=== PATIENT | male | born 1980 | race Caucasian/White ===

== ENCOUNTER 2020-08-21 05:04 | Inpatient (IN) | payer MEDICARE ==
[~2020-08-21] VITALS: Ht 180.3 cm; Wt 64.9 kg
[~2020-08-21 05:04] MED LIST: BENTYL 20 MG TA20 MG PO; CARAFATE1 G PO; METOPROLOL TART25 MG PO; NITROQUICK0.4 MG SL; OMEPRAZOLE20 M1 PO
[2020-08-21 05:58] LABS: BASOPHILS 0.5 % (0-2); EOSINOPHILS 2.6 % (0-7); HEMATOCRIT 38.3 % (42.0-54.0); HEMOGLOBIN 13.6 g/dL (13.5-17.5); IMMATURE GRANULOCYTES 0.2 % (0-5); LYMPHOCYTE ABS# 1.42 10x3/uL (1.32-3.57); LYMPHOCYTES 23.2 % (15-50); MCHC 35.5 g/dL (31.0-37.0); MCV 84.4 fL (80.0-100.0); MEAN PLATELET VOLUME 9.6 fL (7.4-10.4); MONOCYTES 12.2 % (2-11); NEUTROPHIL ABS# 3.76 10x3/uL (1.78-5.38); NEUTROPHILS 61.3 % (40-80); PLATELET COUNT 298 10x3/uL (130-400); RBC 4.54 10x6/uL (4.20-6.10); RDW 13.1 % (11.5-14.5); WBC 6.1 10x3/uL (4.8-10.8)
[2020-08-21 06:12] LABS: CALC OSMOLALITY 283 mosm/kg (275-300); CALCIUM 9.2 mg/dL (8.5-10.1); CARBON DIOXIDE 27.8 mmol/L (21.0-32.0); CHLORIDE - SERUM 106 mmol/L (98-107); CREATININE - SERUM 0.9 mg/dL (0.6-1.3); GLUCOSE 96 mg/dL (74-106); POTASSIUM - SERUM 3.8 mmol/L (3.5-5.1); SODIUM 143 mmol/L (136-145); UREA NITROGEN 9 mg/dL (7-18); eGFR NON AFRICAN AMERICAN > 90 mL/min (90-120)
[2020-08-21 06:18] LABS: ALBUMIN 4.3 g/dL (3.4-5.0); ALKALINE PHOSPHATASE 77 U/L (30-120); ALT (SGPT) 158 U/L (10-68); AMYLASE - SERUM 235 U/L (25-115); BILIRUBIN - TOTAL 0.82 mg/dL (0.2-1.3); LIPASE 1202 U/L (73-393)
[2020-08-21 06:26] LABS: TROPONIN-I < 0.017 ng/mL (0.000-0.060)
[2020-08-21 06:45] VITALS: BP 140/88
[2020-08-21 07:15] LABS: BILIRUBIN NEGATIVE (NEGATIVE); KETONE NEGATIVE (NEGATIVE); NITRITE NEGATIVE (NEGATIVE); UROBILINOGEN NORMAL mg/dL (< 2)
--- NOTE | 2020-08-21 09:05 | NUR ---
ARRIVES TO UNIT PER W/C FROM ER
[2020-08-21] MEDS ORDERED: ZOLOFT50 MG PO ×2 (09:52→09:54)
[2020-08-21] MEDS ORDERED: ATIVAN0.5 MG PO (09:53)
[2020-08-21] MEDS ORDERED: LUNESTA2 M1 PO (09:55)
[2020-08-21] MEDS ORDERED: LIPITOR40 MG PO (09:56)
--- NOTE | 2020-08-21 10:25 | NUR ---
RESTING IN BED, NO DISTRESS NOTED, WANTING TO DRINK, PROVIDED SWABS AND URINAL FOR USD
[2020-08-21 11:59] LABS: UDS - AMPHET NEGATIVE QUAL (NEGATIVE); UDS - BARB NEGATIVE QUAL (NEGATIVE); UDS - BENZO NEGATIVE QUAL (NEGATIVE); UDS - COCAINE NEGATIVE QUAL (NEGATIVE); UDS - OPIATE NEGATIVE QUAL (NEGATIVE); UDS - PCP NEGATIVE QUAL (NEGATIVE); UDS - THC NEGATIVE QUAL (NEGATIVE)
[2020-08-21 12:11] LABS: CHOL - HDL RATIO 3.1 ratio (2.3-4.9); LDL-HDL RATIO 1.5 ratio (1.5-3.5)
[2020-08-21 12:56] VITALS: BP 133/82
[2020-08-21 13:26] VITALS: BP 1244/75
[2020-08-21 13:57] VITALS: BMI 19.9
[2020-08-21 18:16] VITALS: BP 130/80
[2020-08-21 19:16] VITALS: Ht 180.3 cm; Wt 64.9 kg
[2020-08-21 20:52] VITALS: BP 141/75
[2020-08-22 01:04] VITALS: BP 104/69
[2020-08-22 05:25] VITALS: BP 104/68
[2020-08-22 06:43] LABS: BASOPHILS 0.1 % (0-2); EOSINOPHILS 0.8 % (0-7); HEMATOCRIT 35.1 % (42.0-54.0); HEMOGLOBIN 12.6 g/dL (13.5-17.5); IMMATURE GRANULOCYTES 0.2 % (0-5); LYMPHOCYTE ABS# 1.72 10x3/uL (1.32-3.57); LYMPHOCYTES 17.8 % (15-50); MCH 30.1 pg (26.0-34.0); MCHC 35.9 g/dL (31.0-37.0); MEAN PLATELET VOLUME 9.9 fL (7.4-10.4); MONOCYTES 9.8 % (2-11); NEUTROPHIL ABS# 6.89 10x3/uL (1.78-5.38); NEUTROPHILS 71.3 % (40-80); PLATELET COUNT 321 10x3/uL (130-400); RBC 4.18 10x6/uL (4.20-6.10); RDW 12.8 % (11.5-14.5)
[2020-08-22 06:44] LABS: WBC 9.7 10x3/uL (4.8-10.8)
[2020-08-22 07:16] LABS: ALBUMIN 3.6 g/dL (3.4-5.0); ALKALINE PHOSPHATASE 65 U/L (30-120); BILIRUBIN - TOTAL 0.81 mg/dL (0.2-1.3); CALCIUM 8.9 mg/dL (8.5-10.1); CARBON DIOXIDE 26.6 mmol/L (21.0-32.0); CHLORIDE - SERUM 103 mmol/L (98-107); CREATININE - SERUM 0.8 mg/dL (0.6-1.3); GLUCOSE 71 mg/dL (74-106); POTASSIUM - SERUM 3.7 mmol/L (3.5-5.1); PROTEIN - SERUM 6.3 g/dL (6.4-8.2); SODIUM 139 mmol/L (136-145); eGFR NON AFRICAN AMERICAN > 90 mL/min (90-120)
[2020-08-22 07:18] LABS: ALT (SGPT) 102 U/L (10-68); AMYLASE - SERUM 66 U/L (25-115); CALC OSMOLALITY 275 mosm/kg (275-300); LIPASE 424 U/L (73-393); UREA NITROGEN 13 mg/dL (7-18)
--- NOTE | 2020-08-22 08:10 | NUR ---
AAOX4 UPON ENTERING. ADMINISTERED MORNING MEDICATION, EXCEPT PO DUE TO NPO ORDERS. TOLERATED WELL. RESTING IN BED, DENIES ANY NEEDS AT THIS TIME. BED IN LOWEST POSITION, BED RAILS X2, CALL LIGHT WITHIN REACH. WILL CONTINUE POC.
--- NOTE | 2020-08-22 08:20 | NUR ---
AAOX4 UPON ENTERING. ADMINISTERED MORNING MEDICATION AND HUNG NEW BAG OF NS. DENIES ANY NEEDS AT THIS TIME. BED IN LOWEST POSITION, BED RAILS X2, CALL LIGHT WITHIN REACH. WILL CONTINUE POC.
--- NOTE | 2020-08-22 11:01 | NUR ---
PRN ATIVAN FOR ANXIETY. RESTING IN BED. DENIES FURTHER NEEDS AT THIS TIME. WILL CONTINUE POC.
[2020-08-22 11:28] VITALS: BP 131/70
[2020-08-22 16:00] VITALS: BP 152/82
--- NOTE | 2020-08-22 16:16 | NUR ---
NEW BAG OF IV FLUIDS HUNG, ADMINISTERED ZOLOFT AT THIS TIME PER PATIENT REQUEST SINCE IT WASN'T GIVEN THIS MORNING. DENIES FURTHER NEEDS. WILL CONTINUE POC.
--- NOTE | 2020-08-22 17:20 | NUR ---
I have reviewed this patient and I concur with the Shift Assessment completed by the Licensed Practical Nurse today this shift.
--- NOTE | 2020-08-22 18:40 | NUR ---
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 SITTING UPRIGHT IN BED. DENIES ANY NEEDS. BED IN LOWEST POSITION, BED RAILS X2, CALL LIGHT WITHIN REACH. WILL CONTINUE POC.
[2020-08-22 18:48] VITALS: BP 122/79
--- NOTE | 2020-08-22 19:00 | NUR ---
BEDSIDE REPORT RECEIVED AND CARE OF PT ASSUMED. PT LYING IN LOW MOURA'S POSITION WATCHING TV. IV TO RIGHT WRIST PATENT WITH NS INFUSING AT 125 ML/HR, AND ZOFRAN INFUSING AT 4.7 ML/HR. 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
--- NOTE | 2020-08-22 21:24 | NUR ---
GAVE ATIVAN PO PER PRN ORDER PER REQUEST. WILL CONTINUE TO MONITOR FOR NEEDS.
--- NOTE | 2020-08-22 22:04 | NUR ---
HS MEDICAITONS GIVEN. WILL CONTINUE TO MONITOR FOR NEEDS.
[2020-08-23 06:31] LABS: BASOPHILS 0.3 % (0-2); EOSINOPHILS 1.3 % (0-7); HEMATOCRIT 37.6 % (42.0-54.0); HEMOGLOBIN 13.2 g/dL (13.5-17.5); IMMATURE GRANULOCYTES 0.3 % (0-5); LYMPHOCYTE ABS# 2.42 10x3/uL (1.32-3.57); LYMPHOCYTES 30.7 % (15-50); MCHC 35.1 g/dL (31.0-37.0); MCV 85.5 fL (80.0-100.0); MEAN PLATELET VOLUME 9.6 fL (7.4-10.4); MONOCYTES 8.8 % (2-11); NEUTROPHIL ABS# 4.63 10x3/uL (1.78-5.38); NEUTROPHILS 58.6 % (40-80); PLATELET COUNT 337 10x3/uL (130-400); RDW 13.3 % (11.5-14.5); WBC 7.9 10x3/uL (4.8-10.8)
[2020-08-23 06:53] LABS: ALBUMIN 3.9 g/dL (3.4-5.0); ALKALINE PHOSPHATASE 65 U/L (30-120); ALT (SGPT) 78 U/L (10-68); BILIRUBIN - TOTAL 0.58 mg/dL (0.2-1.3); CALCIUM 9.1 mg/dL (8.5-10.1); CARBON DIOXIDE 29.7 mmol/L (21.0-32.0); CHLORIDE - SERUM 104 mmol/L (98-107); CREATININE - SERUM 0.9 mg/dL (0.6-1.3); GLUCOSE 79 mg/dL (74-106); POTASSIUM - SERUM 3.6 mmol/L (3.5-5.1); PROTEIN - SERUM 6.7 g/dL (6.4-8.2); SODIUM 142 mmol/L (136-145); eGFR NON AFRICAN AMERICAN > 90 mL/min (90-120)
[2020-08-23 06:55] LABS: CALC OSMOLALITY 279 mosm/kg (275-300); UREA NITROGEN 8 mg/dL (7-18)
[2020-08-23 09:33] VITALS: BP 132/82
[2020-08-23 11:37] LABS: AMYLASE - SERUM 82 U/L (25-115)
[2020-08-23 11:39] LABS: LIPASE 302 U/L (73-393)
--- NOTE | 2020-08-23 13:26 | NUR ---
0700 AWAKE ALERT SITTING UP IN BED ASNWERING ALL QUESTIONS REFUSES SCD PULLING 2000ML ON IS
[2020-08-23 13:56] VITALS: BP 133/71
--- NOTE | 2020-08-23 13:58 | MORECARE ---
CASE MANAGEMENT DISCHARGE SUMMARY PATIENT: AUGIE NEGRO UNIT: [id number] ADM DATE: 08/21/20 AGE: 40 : 82 SEX: M ROOM/BED: D.2223 AUTHOR: INA,DOC PHYSICIAN: REFERRING PHYSICIAN: KIKE TIDWELL MD DATE OF SERVICE: 08/23/20 Case Management Discharge Planning Summary DCP REVIEW SUMMARY ANTICIPATED D/C DATE: EXPECTED LOS : CASE STATUS: DCP Initiated INITIAL REVIEW: 08/21/2020 INITIAL REVIEWER: Anny Donnelly FINAL DISCHARGE DISPOSITION: : FINAL REVIEWER: FINAL REVIEW DATE: DCP Focus Questions & Answers DCP Screen QUESTION: ANSWER High Risk Factors: : 3 or more ED visits within the last 60 days DCP Evaluation QUESTION: ANSWER Patient's ability to cope with chronic illness : d. No chronic illness Would patient like to participate in any Care Coordination programs (if applicable): : Not applicable Mental health screen: : No mental health history DCP Re-evaluation QUESTION: ANSWER Would patient like to participate in any Care Coordination programs (if applicable): : Not applicable PATIENT: AUGIE NEGRO ENCOUNTER: [id number] MEDICAL RECORD#: [id number] ADMISSION DATE: 08/21/2020 DISCHARGE DATE: ATTENDING MD: KIKE MARQUEZ : AGE: 40 MARITAL STATUS: S DC PLAN ID: [id number] FACILITY: [facility] PRINTED ON: 08/23/20 13:58 CT All edits/amendments must be made on the electronic document DICTATION DATE: 08/23/20 1358 PRECISION FILER HAND: DICK 08/23/20 1358 RPT#: [id number] DC DATE: STATUS: ADM IN [facility] [address] [place] [address] END OF REPORT
--- NOTE | 2020-08-23 14:11 | MORECARE ---
CASE MANAGEMENT DISCHARGE SUMMARY PATIENT: AUGIE NEGRO UNIT: [id number] ADM DATE: 08/21/20 AGE: 40 : 82 SEX: M ROOM/BED: D.2223 AUTHOR: INA,DOC PHYSICIAN: REFERRING PHYSICIAN: KIKE TIDWELL MD DATE OF SERVICE: 08/23/20 Case Management Discharge Planning Summary COMMENTS ENTERED DATE: 08/23/20 14:01 CT COMMENT TYPE: Discharge Planning REVIEWER: Anny Donnelly CM met with patient to complete initial dc planning assessment. CM educated patient on the CM role and verbal consent given by patient to complete assessment. Patient lives at home with his and their child & states he is independent with his care. At discharge patient plans to return home and feels this is a safe discharge. CM discussed availability of home health, rehab services, and medical equipment. He said that he will take a taxi to get home and he has the money to pay for it. He uses [facility] pharmacy and his PCP is Dotty Carroll. IMM served and ELIDA signed to continue Care IV . Patient denied known discharge needs at this time. CM will continue to follow and will assist as needed with dc plans/needs. DCP REVIEW SUMMARY ANTICIPATED D/C DATE: EXPECTED LOS : CASE STATUS: DCP Initiated INITIAL REVIEW: 08/21/2020 INITIAL REVIEWER: Anny Donnelly FINAL DISCHARGE DISPOSITION: : FINAL REVIEWER: FINAL REVIEW DATE: DCP Focus Questions & Answers DCP Screen QUESTION: ANSWER High Risk Factors: : 3 or more ED visits within the last 60 days DCP Evaluation QUESTION: ANSWER Patient and/or caregiver agree upon recommended discharge plan? : Yes Patient's current cognitive status: : *Oriented to person, place, situation, time and present Patient's ability to cope with chronic illness : a. Adequate (0-3 ED visits in 6 mos., adequate financial resources, attends scheduled appts.) Family / Caregiver's ability to cope with chronic illness: : a. Adequate (ability to meet patient's medical needs, ensures patient attends medical appts.) Does the patient have the ability to pay for or attain post discharge needs / services? : Yes Functional screen assessment: : No issues identified Physical Status: : Independent with ADL's Equipment needed for post hospitalization: : None Is there a likelihood that the patient will require additional services to return to the preadmission environment? : Yes Living Arrangements: : Home with Spouse/Significant Other Results of this evaluation have been discussed with: : Patient Patient with capacity for self-care or can be cared for in same environment as prior to hospitalization? : Yes Baseline cognitive status: : *Oriented to person, place, situation, time and present Living arrangements comments: : lives with , and child Physical environment modification needed / anticipated for discharge: : No Medication Management: : Patient states can afford medications Planned post hospital services available for patient? : No Pharmacy name(s): : [facility] PCP: rolando Carroll Planned post hospital services covered by insurance plan? : N/A Does Patient have transportation to get home and to follow-up medical appointments when discharged from the hospital? : Yes Comments: : he will take a taxi & has money to pay for it Would patient like to participate in any Care Coordination programs (if applicable): : Not applicable Does the patient have electricity at home? : Yes Does the patient have running water in their house? : Yes Equipment in use: : None Mental health screen: : No mental health history Psychosocial status: : Independent adult (18-64) Abuse/Neglect: : None Resources / Services in place: : Home health Contact information for resources in use: : current with care iv home health DCP Re-evaluation QUESTION: ANSWER Would patient like to participate in any Care Coordination programs (if applicable): : Not applicable PATIENT: AUGIE NEGRO ENCOUNTER: [id number] MEDICAL RECORD#: [id number] ADMISSION DATE: 08/21/2020 DISCHARGE DATE: ATTENDING MD: KIKE MARQUEZ : AGE: 40 MARITAL STATUS: S DC PLAN ID: [id number] FACILITY: [facility] PRINTED ON: 08/23/20 14:11 CT All edits/amendments must be made on the electronic document DICTATION DATE: 08/23/201410 3RD GRADE READING TEACHER: DICK 08/23/201410 RPT#: [id number] DC DATE: STATUS: ADM IN [facility] [address] [place] [address] END OF REPORT
[2020-08-23 17:05] VITALS: BP 140/82
--- NOTE | 2020-08-23 19:00 | NUR ---
BEDSIDE REPORT RECEIVED AND CARE OF PT ASSUMED. PT LYING IN HIGH MOURA'S POSITION WATCHING TV. IV TO RIGHT WRIST PATENT WIT HNS INFUSING AT 50 ML/HR. SMALL HEALING INCISION ON LEFT CHEST WHERE PT JUST HAD PACEMAKER PLACED. STILL C/O PAIN IN ABDOMEN, BUT IMPROVING. WILL MONITOR FOR NEEDS.
--- NOTE | 2020-08-23 19:41 | NUR ---
GAVE ATIVAN AND DILAUDID PO PER PRN ORDER, PER REQUEST FOR ANXIETY AND ACHING ABDOMINAL PAIN RATED AT 8/10. WILL MONITOR FOR EFFECTIVENESS.
[2020-08-23 20:21] VITALS: BP 141/94
--- NOTE | 2020-08-23 20:45 | NUR ---
GAVE WARM WIPES PER PT REQUEST TO PERFORM BEDBATH ON HIMSELF.
[2020-08-24 04:30] VITALS: BP 107/70
--- NOTE | 2020-08-24 08:01 | NUR ---
0700 BEDSIDE REPORT RECEIVED PT IN BED JUST WAKING UP ENCOURAGED IS USE PULLING 3000 ML
[2020-08-24 08:27] LABS: BASOPHILS 0.2 % (0-2); EOSINOPHILS 2.1 % (0-7); IMMATURE GRANULOCYTES 0.4 % (0-5); LYMPHOCYTE ABS# 1.62 10x3/uL (1.32-3.57); LYMPHOCYTES 28.4 % (15-50); MCH 29.9 pg (26.0-34.0); MCHC 35.9 g/dL (31.0-37.0); MEAN PLATELET VOLUME 9.8 fL (7.4-10.4); MONOCYTES 11.6 % (2-11); NEUTROPHIL ABS# 3.28 10x3/uL (1.78-5.38); NEUTROPHILS 57.3 % (40-80); PLATELET COUNT 332 10x3/uL (130-400); RBC 4.68 10x6/uL (4.20-6.10)
[2020-08-24 08:28] LABS: MCV 83.3 fL (80.0-100.0); WBC 5.7 10x3/uL (4.8-10.8)
[2020-08-24 08:38] VITALS: BP 125/82
[2020-08-24 09:11] LABS: ALBUMIN 3.9 g/dL (3.4-5.0); ALKALINE PHOSPHATASE 65 U/L (30-120); ALT (SGPT) 67 U/L (10-68); AMYLASE - SERUM 34 U/L (25-115); BILIRUBIN - TOTAL 0.87 mg/dL (0.2-1.3); CALC OSMOLALITY 280 mosm/kg (275-300); CALCIUM 9.5 mg/dL (8.5-10.1); CARBON DIOXIDE 31.1 mmol/L (21.0-32.0); CHLORIDE - SERUM 102 mmol/L (98-107); CREATININE - SERUM 0.8 mg/dL (0.6-1.3); GLUCOSE 67 mg/dL (74-106); LIPASE 75 U/L (73-393); POTASSIUM - SERUM 3.4 mmol/L (3.5-5.1); PROTEIN - SERUM 6.4 g/dL (6.4-8.2); SODIUM 143 mmol/L (136-145); UREA NITROGEN 7 mg/dL (7-18); eGFR NON AFRICAN AMERICAN > 90 mL/min (90-120)
[2020-08-24 11:11] LABS: HEPATITIS C ANTIBODY <0.1 S/CO RAT (0.0-0.9)
[2020-08-24 12:30] VITALS: BP 113/72
[2020-08-24] MEDS ORDERED: HYDROCODON-ACE1 EA10 PO (13:06)
--- NOTE | 2020-08-24 14:06 | MORECARE ---
CASE MANAGEMENT DISCHARGE SUMMARY PATIENT: AUGIE NEGRO UNIT: [id number] ADM DATE: 08/21/20 AGE: 40 : 82 SEX: M ROOM/BED: D.2223 AUTHOR: INADOC PHYSICIAN: REFERRING PHYSICIAN: KIKE TIDWELL MD DATE OF SERVICE: 08/24/20 Case Management Discharge Planning Summary COMMENTS ENTERED DATE: 08/24/20 14:04 CT COMMENT TYPE: Discharge Planning REVIEWER: Anny Donnelly PATIENT BEING DISCHARGED HOME TODAY, WILL RESUME HOME HEALTH WITH CARE IV ENTERED DATE: 08/23/20 14:01 CT COMMENT TYPE: Discharge Planning REVIEWER: Anny Donnelly CM met with patient to complete initial dc planning assessment. CM educated patient on the CM role and verbal consent given by patient to complete assessment. Patient lives at home with his and their child & states he is independent with his care. At discharge patient plans to return home and feels this is a safe discharge. CM discussed availability of home health, rehab services, and medical equipment. He said that he will take a taxi to get home and he has the money to pay for it. He uses [facility] and his PCP is Dotty Carroll. IMM served and ELIDA signed to continue Care IV HH. Patient denied known discharge needs at this time. CM will continue to follow and will assist as needed with dc plans/needs. DCP REVIEW SUMMARY ANTICIPATED D/C DATE: EXPECTED LOS : CASE STATUS: DCP Initiated INITIAL REVIEW: 08/21/2020 INITIAL REVIEWER: Anny Donnelly FINAL DISCHARGE DISPOSITION: : FINAL REVIEWER: FINAL REVIEW DATE: DCP Focus Questions & Answers DCP Screen QUESTION: ANSWER High Risk Factors: : 3 or more ED visits within the last 60 days DCP Evaluation QUESTION: ANSWER Family / Caregiver's ability to cope with chronic illness: : a. Adequate (ability to meet patient's medical needs, ensures patient attends medical appts.) Patient's ability to cope with chronic illness : a. Adequate (0-3 ED visits in 6 mos., adequate financial resources, attends scheduled appts.) Patient's current cognitive status: : *Oriented to person, place, situation, time and present Patient and/or caregiver agree upon recommended discharge plan? : Yes Physical Status: : Independent with ADL's Functional screen assessment: : No issues identified Does the patient have the ability to pay for or attain post discharge needs / services? : Yes Living Arrangements: : Home with Spouse/Significant Other Is there a likelihood that the patient will require additional services to return to the preadmission environment? : Yes Equipment needed for post hospitalization: : None Living arrangements comments: : lives with , and child Baseline cognitive status: : *Oriented to person, place, situation, time and present Patient with capacity for self-care or can be cared for in same environment as prior to hospitalization? : Yes Results of this evaluation have been discussed with: : Patient Physical environment modification needed / anticipated for discharge: : No Medication Management: : Patient states can afford medications Pharmacy name(s): : [facility] PCP: rolando Carroll Planned post hospital services available for patient? : No Does Patient have transportation to get home and to follow-up medical appointments when discharged from the hospital? : Yes Planned post hospital services covered by insurance plan? : N/A Would patient like to participate in any Care Coordination programs (if applicable): : Not applicable Comments: : he will take a taxi & has money to pay for it Does the patient have electricity at home? : Yes Does the patient have running water in their house? : Yes Equipment in use: : None Mental health screen: : No mental health history Psychosocial status: : Independent adult (18-64) Abuse/Neglect: : None Resources / Services in place: : Home health Contact information for resources in use: : current with care iv home health DCP Re-evaluation QUESTION: ANSWER Would patient like to participate in any Care Coordination programs (if applicable): : Not applicable PATIENT: AUGIE NEGRO ENCOUNTER: [id number] MEDICAL RECORD#: [id number] ADMISSION DATE: 08/21/2020 DISCHARGE DATE: ATTENDING MD: KIKE MARQUEZ : AGE: 40 MARITAL STATUS: S DC PLAN ID: [id number] FACILITY: [facility] PRINTED ON: 08/24/20 14:06 CT All edits/amendments must be made on the electronic document DICTATION DATE: 08/24/20 0926 BALANCE TRUER: DICK 08/24/201405 RPT#: [id number] DC DATE: STATUS: ADM IN [facility] [address] [place] [address] END OF REPORT
--- NOTE | 2020-08-24 14:10 | NUR ---
1410 WRITTEN AND VERBAL DISCHARGE INSTRUCTIONS PT VERBALIZED UNDERSTANDING PAPER RX PROVIDED FOR PETE PT CALLED CAB TO PICK HIM UP WHEELCHAIR TO TRANSPORT TO [facility]ONT [facility]
--- NOTE | 2020-08-24 14:44 | MORECARE ---
CASE MANAGEMENT DISCHARGE SUMMARY PATIENT: AUGIE NEGRO UNIT: [id number] ADM DATE: 08/21/20 AGE: 40 : 82 SEX: M ROOM/BED: D.2223 AUTHOR: INADOC PHYSICIAN: REFERRING PHYSICIAN: KIKE TIDWELL MD DATE OF SERVICE: 08/24/20 Case Management Discharge Planning Summary COMMENTS ENTERED DATE: 08/24/20 14:04 CT COMMENT TYPE: Discharge Planning REVIEWER: Anny Donnelly PATIENT BEING DISCHARGED HOME TODAY, WILL RESUME HOME HEALTH WITH CARE IV ENTERED DATE: 08/23/20 14:01 CT COMMENT TYPE: Discharge Planning REVIEWER: Anny Donnelly CM met with patient to complete initial dc planning assessment. CM educated patient on the CM role and verbal consent given by patient to complete assessment. Patient lives at home with his and their child & states he is independent with his care. At discharge patient plans to return home and feels this is a safe discharge. CM discussed availability of home health, rehab services, and medical equipment. He said that he will take a taxi to get home and he has the money to pay for it. He uses [facility] pharmacy and his PCP is Dotty Carroll. IMM served and ELIDA signed to continue Care IV HH. Patient denied known discharge needs at this time. CM will continue to follow and will assist as needed with dc plans/needs. DCP REVIEW SUMMARY ANTICIPATED D/C DATE: EXPECTED LOS : CASE STATUS: DCP Initiated INITIAL REVIEW: 08/21/2020 INITIAL REVIEWER: Anny Donnelly FINAL DISCHARGE DISPOSITION: : FINAL REVIEWER: FINAL REVIEW DATE: DCP Focus Questions & Answers DCP Screen QUESTION: ANSWER High Risk Factors: : 3 or more ED visits within the last 60 days DCP Evaluation QUESTION: ANSWER Family / Caregiver's ability to cope with chronic illness: : a. Adequate (ability to meet patient's medical needs, ensures patient attends medical appts.) Patient's ability to cope with chronic illness : a. Adequate (0-3 ED visits in 6 mos., adequate financial resources, attends scheduled appts.) Patient's current cognitive status: : *Oriented to person, place, situation, time and present Patient and/or caregiver agree upon recommended discharge plan? : Yes Physical Status: : Independent with ADL's Functional screen assessment: : No issues identified Does the patient have the ability to pay for or attain post discharge needs / services? : Yes Living Arrangements: : Home with Spouse/Significant Other Is there a likelihood that the patient will require additional services to return to the preadmission environment? : Yes Equipment needed for post hospitalization: : None Living arrangements comments: : lives with , and child Baseline cognitive status: : *Oriented to person, place, situation, time and present Patient with capacity for self-care or can be cared for in same environment as prior to hospitalization? : Yes Results of this evaluation have been discussed with: : Patient Physical environment modification needed / anticipated for discharge: : No Medication Management: : Patient states can afford medications Pharmacy name(s): : [facility] PCP: rolando Carroll Planned post hospital services available for patient? : No Does Patient have transportation to get home and to follow-up medical appointments when discharged from the hospital? : Yes Planned post hospital services covered by insurance plan? : N/A Would patient like to participate in any Care Coordination programs (if applicable): : Not applicable Comments: : he will take a taxi & has money to pay for it Does the patient have electricity at home? : Yes Does the patient have running water in their house? : Yes Equipment in use: : None Mental health screen: : No mental health history Psychosocial status: : Independent adult (18-64) Abuse/Neglect: : None Resources / Services in place: : Home health Contact information for resources in use: : current with care iv home health DCP Re-evaluation QUESTION: ANSWER Would patient like to participate in any Care Coordination programs (if applicable): : Not applicable PATIENT: AUGIE NEGRO ENCOUNTER: [id number] MEDICAL RECORD#: [id number] ADMISSION DATE: 08/21/2020 DISCHARGE DATE: ATTENDING MD: KIKE MARQUEZ : AGE: 40 MARITAL STATUS: S DC PLAN ID: [id number] FACILITY: [facility] PRINTED ON: 08/24/20 14:44 CT All edits/amendments must be made on the electronic document DICTATION DATE: 08/24/20 6784 RIVET FLUNKY: DICK 08/24/20 1444 RPT#: [id number] DC DATE: STATUS: ADM IN [facility] [address] [place] [address] END OF REPORT
--- NOTE | 2020-08-25 10:22 | MORECARE ---
CASE MANAGEMENT DISCHARGE SUMMARY PATIENT: AUGIE NEGRO UNIT: [id number] ADM DATE: 08/21/20 AGE: 40 : 82 SEX: M ROOM/BED: D.2223 AUTHOR: INA,DOC PHYSICIAN: REFERRING PHYSICIAN: KIKE TIDWELL MD DATE OF SERVICE: 08/25/20 Case Management Discharge Planning Summary COMMENTS ENTERED DATE: 08/24/20 14:04 CT COMMENT TYPE: Discharge Planning REVIEWER: Anny Donnelly PATIENT BEING DISCHARGED HOME TODAY, WILL RESUME HOME HEALTH WITH CARE IV ENTERED DATE: 08/23/20 14:01 CT COMMENT TYPE: Discharge Planning REVIEWER: Anny Donnelly CM met with patient to complete initial dc planning assessment. CM educated patient on the CM role and verbal consent given by patient to complete assessment. Patient lives at home with his and their child & states he is independent with his care. At discharge patient plans to return home and feels this is a safe discharge. CM discussed availability of home health, rehab services, and medical equipment. He said that he will take a taxi to get home and he has the money to pay for it. He uses [facility] pharmacy and his PCP is Dotty Carroll. IMM served and ELIDA signed to continue Care IV HH. Patient denied known discharge needs at this time. CM will continue to follow and will assist as needed with dc plans/needs. DCP REVIEW SUMMARY ANTICIPATED D/C DATE: EXPECTED LOS : 0 CASE STATUS: DCP Complete INITIAL REVIEW: 08/21/2020 INITIAL REVIEWER: Anny Donnelly FINAL DISCHARGE DISPOSITION: 06 : Discharged/Trans to Home Under Care of Organized Home Health Service in Anticipation of Skilled Care FINAL REVIEWER: Anny Donnelly FINAL REVIEW DATE: 08/25/2020 DCP Focus Questions & Answers DCP Screen QUESTION: ANSWER High Risk Factors: : 3 or more ED visits within the last 60 days DCP Evaluation QUESTION: ANSWER Patient and/or caregiver agree upon recommended discharge plan? : Yes Patient's current cognitive status: : *Oriented to person, place, situation, time and present Patient's ability to cope with chronic illness : a. Adequate (0-3 ED visits in 6 mos., adequate financial resources, attends scheduled appts.) Family / Caregiver's ability to cope with chronic illness: : a. Adequate (ability to meet patient's medical needs, ensures patient attends medical appts.) Does the patient have the ability to pay for or attain post discharge needs / services? : Yes Functional screen assessment: : No issues identified Physical Status: : Independent with ADL's Equipment needed for post hospitalization: : None Is there a likelihood that the patient will require additional services to return to the preadmission environment? : Yes Living Arrangements: : Home with Spouse/Significant Other Results of this evaluation have been discussed with: : Patient Patient with capacity for self-care or can be cared for in same environment as prior to hospitalization? : Yes Baseline cognitive status: : *Oriented to person, place, situation, time and present Living arrangements comments: : lives with , and child Physical environment modification needed / anticipated for discharge: : No Medication Management: : Patient states can afford medications Planned post hospital services available for patient? : No Pharmacy name(s): : [facility] PCP: rolando Carroll Planned post hospital services covered by insurance plan? : N/A Does Patient have transportation to get home and to follow-up medical appointments when discharged from the hospital? : Yes Comments: : he will take a taxi & has money to pay for it Would patient like to participate in any Care Coordination programs (if applicable): : Not applicable Does the patient have electricity at home? : Yes Does the patient have running water in their house? : Yes Equipment in use: : None Mental health screen: : No mental health history Psychosocial status: : Independent adult (18-64) Abuse/Neglect: : None Resources / Services in place: : Home health Contact information for resources in use: : current with care iv home health DCP Re-evaluation QUESTION: ANSWER Would patient like to participate in any Care Coordination programs (if applicable): : Not applicable PATIENT: AUGIE NEGRO ENCOUNTER: [id number] MEDICAL RECORD#: [id number] ADMISSION DATE: 08/21/2020 DISCHARGE DATE: 08/24/2020 ATTENDING MD: KIKE MARQUEZ : AGE: 40 MARITAL STATUS: S DC PLAN ID: [id number] FACILITY: [facility] PRINTED ON: 08/25/20 9:25 CT All edits/amendments must be made on the electronic document DICTATION DATE: 08/25/20924 TURF FARM WORKER: DICK 08/25/20924 RPT#: [id number] DC DATE:08/24/20 STATUS: DIS IN [facility] [address] [place] [address] END OF REPORT
--- NOTE | 2020-08-25 13:02 | MORECARE ---
CASE MANAGEMENT DISCHARGE SUMMARY PATIENT: AUGIE NEGRO UNIT: [id number] ADM DATE: 08/21/20 AGE: 40 : 82 SEX: M ROOM/BED: D.2223 AUTHOR: INA,DOC PHYSICIAN: REFERRING PHYSICIAN: KIKE TIDWELL MD DATE OF SERVICE: 08/25/20 Case Management Discharge Planning Summary COMMENTS ENTERED DATE: 08/24/20 14:04 CT COMMENT TYPE: Discharge Planning REVIEWER: Anny Donnelly PATIENT BEING DISCHARGED HOME TODAY, WILL RESUME HOME HEALTH WITH [facility] ENTERED DATE: 08/23/20 14:01 CT COMMENT TYPE: Discharge Planning REVIEWER: Anny Donnelly CM met with patient to complete initial dc planning assessment. CM educated patient on the CM role and verbal consent given by patient to complete assessment. Patient lives at home with his and their child & states he is independent with his care. At discharge patient plans to return home and feels this is a safe discharge. CM discussed availability of home health, rehab services, and medical equipment. He said that he will take a taxi to get home and he has the money to pay for it. He uses [facility] and his PCP is Dotty Carroll. IMM served and ELIDA signed to continue [facility]. Patient denied known discharge needs at this time. CM will continue to follow and will assist as needed with dc plans/needs. DCP REVIEW SUMMARY ANTICIPATED D/C DATE: EXPECTED LOS : 0 CASE STATUS: DCP Complete INITIAL REVIEW: 08/21/2020 INITIAL REVIEWER: Anny Donnelly FINAL DISCHARGE DISPOSITION: 06 : Discharged/Trans to Home Under Care of Organized Home Health Service in Anticipation of Skilled Care FINAL REVIEWER: Anny Donnelly FINAL REVIEW DATE: 08/25/2020 DCP Focus Questions & Answers DCP Screen QUESTION: ANSWER High Risk Factors: : 3 or more ED visits within the last 60 days DCP Evaluation QUESTION: ANSWER Patient and/or caregiver agree upon recommended discharge plan? : Yes Patient's current cognitive status: : *Oriented to person, place, situation, time and present Patient's ability to cope with chronic illness : a. Adequate (0-3 ED visits in 6 mos., adequate financial resources, attends scheduled appts.) Family / Caregiver's ability to cope with chronic illness: : a. Adequate (ability to meet patient's medical needs, ensures patient attends medical appts.) Does the patient have the ability to pay for or attain post discharge needs / services? : Yes Functional screen assessment: : No issues identified Physical Status: : Independent with ADL's Equipment needed for post hospitalization: : None Is there a likelihood that the patient will require additional services to return to the preadmission environment? : Yes Living Arrangements: : Home with Spouse/Significant Other Results of this evaluation have been discussed with: : Patient Patient with capacity for self-care or can be cared for in same environment as prior to hospitalization? : Yes Baseline cognitive status: : *Oriented to person, place, situation, time and present Living arrangements comments: : lives with , and child Physical environment modification needed / anticipated for discharge: : No Medication Management: : Patient states can afford medications Planned post hospital services available for patient? : No Pharmacy name(s): : [facility] PCP: rolando Carroll Planned post hospital services covered by insurance plan? : N/A Does Patient have transportation to get home and to follow-up medical appointments when discharged from the hospital? : Yes Comments: : he will take a taxi & has money to pay for it Would patient like to participate in any Care Coordination programs (if applicable): : Not applicable Does the patient have electricity at home? : Yes Does the patient have running water in their house? : Yes Equipment in use: : None Mental health screen: : No mental health history Psychosocial status: : Independent adult (18-64) Abuse/Neglect: : None Resources / Services in place: : Home health Contact information for resources in use: : current with [facility] home [facility] DCP Re-evaluation QUESTION: ANSWER Would patient like to participate in any Care Coordination programs (if applicable): : Not applicable PATIENT: AUGIE NEGRO ENCOUNTER: [id number] MEDICAL RECORD#: [id number] ADMISSION DATE: 08/21/2020 DISCHARGE DATE: 08/24/2020 ATTENDING MD: KIKE MARQUEZ : AGE: 40 MARITAL STATUS: S DC PLAN ID: [id number] FACILITY: [facility] PRINTED ON: 08/25/20 13:02 CT All edits/amendments must be made on the electronic document DICTATION DATE: 08/25/20 1302 GLOVE TAGGER: DICK 08/25/20 130 RPT#: [id number] DC DATE:08/24/20 STATUS: DIS IN [facility] [address] [place] [address] END OF REPORT
== END 2020-08-24 14:00 | disposition home health service (06) | DRG 440 ==
LOC: D.ER 05:04 → D.MS 07:45
PROVIDERS: Family Medicine; ADMIT Emergency Medicine; ATTEND Emergency Medicine
DX: K85.90 Acute pancreatitis without necrosis or infection, unspecified (principal); K21.9 Gastro-esophageal reflux disease without esophagitis; I10 Essential (primary) hypertension; Z95.0 Presence of cardiac pacemaker

== ENCOUNTER 2020-08-27 19:22 | Inpatient (IN) | payer MEDICARE ==
[~2020-08-27] VITALS: Ht 180.3 cm; Wt 62.3 kg
[~2020-08-27 19:22] MED LIST changes: +ATIVAN0.5 MG PO; +HYDROCODON-ACE1 EA10 PO; +LIPITOR40 MG PO; +LUNESTA2 M1 PO; +ZOLOFT50 MG PO
[2020-08-27 20:07] LABS: BASOPHILS 0.4 % (0-2); EOSINOPHILS 2.2 % (0-7); HEMATOCRIT 44.6 % (42.0-54.0); HEMOGLOBIN 16.5 g/dL (13.5-17.5); IMMATURE GRANULOCYTES 0.3 % (0-5); LYMPHOCYTE ABS# 2.51 10x3/uL (1.32-3.57); LYMPHOCYTES 32.6 % (15-50); MCH 30.8 pg (26.0-34.0); MCV 83.4 fL (80.0-100.0); MEAN PLATELET VOLUME 9.7 fL (7.4-10.4); MONOCYTES 12.2 % (2-11); NEUTROPHIL ABS# 4.04 10x3/uL (1.78-5.38); NEUTROPHILS 52.3 % (40-80); PLATELET COUNT 321 10x3/uL (130-400); RBC 5.35 10x6/uL (4.20-6.10); RDW 13.1 % (11.5-14.5); WBC 7.7 10x3/uL (4.8-10.8)
[2020-08-27 20:11] VITALS: BP 141/94
[2020-08-27 20:16] LABS: CALC OSMOLALITY 270 mosm/kg (275-300); CALCIUM 9.7 mg/dL (8.5-10.1); CARBON DIOXIDE 30.8 mmol/L (21.0-32.0); CHLORIDE - SERUM 98 mmol/L (98-107); CREATININE - SERUM 0.9 mg/dL (0.6-1.3); GLUCOSE 98 mg/dL (74-106); POTASSIUM - SERUM 4.6 mmol/L (3.5-5.1); SODIUM 136 mmol/L (136-145); UREA NITROGEN 9 mg/dL (7-18); eGFR NON AFRICAN AMERICAN > 90 mL/min (90-120)
[2020-08-27 20:23] LABS: ALBUMIN 4.7 g/dL (3.4-5.0); ALKALINE PHOSPHATASE 77 U/L (30-120); ALT (SGPT) 110 U/L (10-68); AMYLASE - SERUM 74 U/L (25-115); BILIRUBIN - TOTAL 1.14 mg/dL (0.2-1.3); LIPASE 498 U/L (73-393)
[2020-08-27 20:30] VITALS: BP 134/81
--- NOTE | 2020-08-27 21:07 | NUR ---
URINE SENT TO LAB
[2020-08-27 21:30] VITALS: BP 146/91
[2020-08-27 21:32] LABS: BILIRUBIN NEGATIVE (NEGATIVE); KETONE NEGATIVE (NEGATIVE); NITRITE NEGATIVE (NEGATIVE); UROBILINOGEN NORMAL mg/dL (< 2)
[2020-08-27 23:33] LABS: CKMB 0.2 U/L (0.0-3.6); CREATINE KINASE 70 UL (21-232); TROPONIN-I < 0.017 ng/mL (0.000-0.060)
[2020-08-27 23:51] VITALS: BP 143/83
[2020-08-28 00:31] VITALS: BMI 19.1
--- NOTE | 2020-08-28 02:34 | NUR ---
RECEIVED ER REPORT FROM GILBERT. PT TRANSFER VIA WHEELCHAIR. PT IS ALERT, AWAKE AND ORIENTED X4.
[2020-08-28 03:58] LABS: UDS - AMPHET NEGATIVE QUAL (NEGATIVE); UDS - BARB NEGATIVE QUAL (NEGATIVE); UDS - BENZO NEGATIVE QUAL (NEGATIVE); UDS - COCAINE NEGATIVE QUAL (NEGATIVE); UDS - OPIATE POSITIVE QUAL (NEGATIVE); UDS - PCP NEGATIVE QUAL (NEGATIVE); UDS - THC NEGATIVE QUAL (NEGATIVE)
[2020-08-28 05:55] LABS: BASOPHILS 0.4 % (0-2); EOSINOPHILS 1.8 % (0-7); HEMATOCRIT 37.3 % (42.0-54.0); IMMATURE GRANULOCYTES 0.2 % (0-5); LYMPHOCYTE ABS# 1.71 10x3/uL (1.32-3.57); LYMPHOCYTES 31.1 % (15-50); MCH 29.8 pg (26.0-34.0); MCHC 35.1 g/dL (31.0-37.0); MEAN PLATELET VOLUME 9.6 fL (7.4-10.4); MONOCYTES 14.4 % (2-11); NEUTROPHIL ABS# 2.86 10x3/uL (1.78-5.38); NEUTROPHILS 52.1 % (40-80); RBC 4.39 10x6/uL (4.20-6.10); RDW 13.3 % (11.5-14.5)
[2020-08-28 06:04] LABS: HEMOGLOBIN 13.1 g/dL (13.5-17.5); PLATELET COUNT 256 10x3/uL (130-400); WBC 5.5 10x3/uL (4.8-10.8)
[2020-08-28 06:24] VITALS: BP 130/52
[2020-08-28 06:46] LABS: ALKALINE PHOSPHATASE 66 U/L (30-120); ALT (SGPT) 110 U/L (10-68); BILIRUBIN - TOTAL 0.66 mg/dL (0.2-1.3); CALC OSMOLALITY 277 mosm/kg (275-300); CALCIUM 8.6 mg/dL (8.5-10.1); CARBON DIOXIDE 27.1 mmol/L (21.0-32.0); CHLORIDE - SERUM 107 mmol/L (98-107); CREATININE - SERUM 0.7 mg/dL (0.6-1.3); GLUCOSE 76 mg/dL (74-106); MAGNESIUM - SERUM 2.7 mg/dL (1.8-2.4); POTASSIUM - SERUM 4.1 mmol/L (3.5-5.1); SODIUM 141 mmol/L (136-145); UREA NITROGEN 7 mg/dL (7-18); eGFR NON AFRICAN AMERICAN > 90 mL/min (90-120)
[2020-08-28 06:49] LABS: ALBUMIN 3.5 g/dL (3.4-5.0); AMYLASE - SERUM 50 U/L (25-115); LIPASE 152 U/L (73-393); PROTEIN - SERUM 5.9 g/dL (6.4-8.2)
--- NOTE | 2020-08-28 07:30 | NUR ---
REQUESTED AND GIVEN 4MG MORPHINE SLOW IVP FOR C/O LEFT ABDOMINAL PAIN LEVEL 6 WILL MONITOR. LUNGS ARE CLEAR BILATERALLY, NO COUGH NOTED. SKIN IS INTACT WITHOUT REDNESS. BOWEL SOUNDS ARE HYPOACTIVE,BUT PATIENT REPORTS NORMAL STOOL YESTERDAY. IV TO LEFT HAND IS PATENT WTIHOUT REDNESS AT INSERTION SITE. DENIES NEEDS.
[2020-08-28 08:22] VITALS: BP 123/78
--- NOTE | 2020-08-28 09:00 | NUR ---
TOOK AM MEDS WITHOUT DIFFICULTY. DENIES NEEDS.
--- NOTE | 2020-08-28 11:35 | NUR ---
REQUESTED AND GIVEN 4MG MORPHINE SLOW IVP FOR C/O LEFT ABDOMINAL PAIN LEVEL 6. WILL MONITOR.
[2020-08-28 12:11] LABS: CHOL - HDL RATIO 2.8 ratio (2.3-4.9); LDL-HDL RATIO 1.5 ratio (1.5-3.5)
[2020-08-28 12:20] VITALS: BP 115/73
--- NOTE | 2020-08-28 14:40 | NUR ---
REQUESTED AND GIVEN 0.5 MG ATIVAN PO FOR C/O ANXIETY. WILL MONITOR.
--- NOTE | 2020-08-28 16:05 | NUR ---
RESTING QUIETLY IN ROOM. NO NEEDS NOTED.
[2020-08-28 16:49] VITALS: BP 122/77
--- NOTE | 2020-08-28 17:44 | NUR ---
REQUESTED AND GIVEN 4MG MORPHINE SLOW IVP FOR ABDOMINAL PAIN LEVEL 6. ALSO REQUESTED ZOFRAN 4MG FOR C/O NAUSEA. WILL MONITOR. ATE ALL OF SUPPER. DENIES NEEDS. NO CHANGES NOTED.
[2020-08-29 00:40] VITALS: BP 109/74
--- NOTE | 2020-08-29 02:07 | NUR ---
PT C/O "GAS PAINS" RADIATING TO THE CHEST. PT DID VERBALIZE THAT THIS WAS IDENTICAL TO THE LAST TIME HE STARTED EATING SOLID FOOD WITH LAST ONSET OF PANCREATITIS. 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
[2020-08-29 03:40] LABS: CKMB 0.2 U/L (0.0-3.6); CREATINE KINASE 101 UL (21-232)
--- NOTE | 2020-08-29 03:42 | NUR ---
PT HAS HAD NO FURTHER C/O PAIN/DISCOMFORT. PT GIVEN SIMETHICONE PER PRN ORDER AND EFFECTIVE FOR GAS PAIN. SLEEPING AT THIS TIME.
[2020-08-29 03:51] LABS: TROPONIN-I < 0.017 ng/mL (0.000-0.060)
--- NOTE | 2020-08-29 07:45 | NUR ---
AWAKE AND ALERT. ORIENTED X3. REQUESTED AND GIVEN 4MG MORPHINE SLOW IVP FOR C/O LEFT ABDOMINAL PAIN LEVEL 6. WILL MONITOR.. LUNGS ARE CLEAR BILATERALLY, NO COUGH NOTED. REPORTED USED IS INSTRUCTED. SKIN IS INTACT WITHOUT REDNESS. NO BM IN PM. DENIES FURTHER NEEDS.
--- NOTE | 2020-08-29 07:45 | NUR ---
REQUESTED AND GIVEN 4MG MORPHINE SLOW IVP FOR C/O LEFT ABDOMINAL PAIN LEVEL 6. WILL MONITOR.
[2020-08-29 07:53] LABS: BASOPHILS 0.3 % (0-2); EOSINOPHILS 1.3 % (0-7); HEMOGLOBIN 14.5 g/dL (13.5-17.5); IMMATURE GRANULOCYTES 0.3 % (0-5); LYMPHOCYTE ABS# 1.51 10x3/uL (1.32-3.57); LYMPHOCYTES 18.9 % (15-50); MCH 29.9 pg (26.0-34.0); MCHC 35.4 g/dL (31.0-37.0); MCV 84.5 fL (80.0-100.0); MEAN PLATELET VOLUME 9.8 fL (7.4-10.4); MONOCYTES 12.5 % (2-11); NEUTROPHIL ABS# 5.35 10x3/uL (1.78-5.38); NEUTROPHILS 66.7 % (40-80); PLATELET COUNT 283 10x3/uL (130-400); RBC 4.85 10x6/uL (4.20-6.10); RDW 13.2 % (11.5-14.5)
[2020-08-29 08:14] VITALS: BP 117/78
[2020-08-29 08:40] LABS: ALBUMIN 4.1 g/dL (3.4-5.0); ALKALINE PHOSPHATASE 78 U/L (30-120); ALT (SGPT) 118 U/L (10-68); BILIRUBIN - TOTAL 0.76 mg/dL (0.2-1.3); CALCIUM 9.3 mg/dL (8.5-10.1); CARBON DIOXIDE 29.2 mmol/L (21.0-32.0); CHLORIDE - SERUM 101 mmol/L (98-107); GLUCOSE 73 mg/dL (74-106); MAGNESIUM - SERUM 2.4 mg/dL (1.8-2.4); POTASSIUM - SERUM 4.1 mmol/L (3.5-5.1); PROTEIN - SERUM 6.8 g/dL (6.4-8.2); SODIUM 140 mmol/L (136-145)
[2020-08-29 08:43] LABS: AMYLASE - SERUM 25 U/L (25-115); CALC OSMOLALITY 277 mosm/kg (275-300); CREATININE - SERUM 0.9 mg/dL (0.6-1.3); LIPASE 39 U/L (73-393); UREA NITROGEN 12 mg/dL (7-18); eGFR NON AFRICAN AMERICAN > 90 mL/min (90-120)
[2020-08-29 08:44] LABS: CKMB 0.2 U/L (0.0-3.6)
[2020-08-29 08:45] LABS: CREATINE KINASE 83 UL (21-232); TROPONIN-I < 0.016 ng/mL (0.000-0.060)
--- NOTE | 2020-08-29 09:30 | NUR ---
ATE MOST OF BREAKFAST. REQUESTED AND GIVNE 0.5MG ATIVAN PO FOR C/O ANXIETY. WILL MONITOR.
[2020-08-29 11:01] VITALS: Ht 180.3 cm; Wt 62.3 kg
--- NOTE | 2020-08-29 12:31 | NUR ---
SITTING UP EATING LUNCH. DENIES NEEDS.
[2020-08-29 13:42] VITALS: BP 111/67
[2020-08-29 14:41] LABS: CKMB 0.3 U/L (0.0-3.6); CREATINE KINASE 80 UL (21-232)
[2020-08-29 14:46] LABS: TROPONIN-I < 0.017 ng/mL (0.000-0.060)
--- NOTE | 2020-08-29 16:00 | NUR ---
UP TO SHOWER WITH SET UP ASSISTANCE ONLY. EKG DONE PER ORDER.
[2020-08-29 16:35] VITALS: BP 111/65; BP 121/71
--- NOTE | 2020-08-29 18:35 | NUR ---
ATE ALL OF SUPPER. REPORTED MORPHINE PRIOR TO MEAL AND GAS EX AFTER HELPED ALOT WITH THE PAIN. NO CHANGES NOTED. DENIES NEEDS.
[2020-08-30 06:59] LABS: BASOPHILS 0.3 % (0-2); HEMOGLOBIN 13.7 g/dL (13.5-17.5); IMMATURE GRANULOCYTES 0.2 % (0-5); LYMPHOCYTE ABS# 1.56 10x3/uL (1.32-3.57); LYMPHOCYTES 26.2 % (15-50); MCH 29.6 pg (26.0-34.0); MCHC 35.1 g/dL (31.0-37.0); MCV 84.2 fL (80.0-100.0); MONOCYTES 16.1 % (2-11); NEUTROPHIL ABS# 3.35 10x3/uL (1.78-5.38); NEUTROPHILS 56.2 % (40-80); PLATELET COUNT 263 10x3/uL (130-400); RBC 4.63 10x6/uL (4.20-6.10); RDW 13.3 % (11.5-14.5)
[2020-08-30 07:20] LABS: ALBUMIN 3.8 g/dL (3.4-5.0); ALKALINE PHOSPHATASE 77 U/L (30-120); ALT (SGPT) 134 U/L (10-68); AMYLASE - SERUM 20 U/L (25-115); CALC OSMOLALITY 277 mosm/kg (275-300); CALCIUM 9.3 mg/dL (8.5-10.1); CARBON DIOXIDE 31.1 mmol/L (21.0-32.0); CHLORIDE - SERUM 100 mmol/L (98-107); GLUCOSE 85 mg/dL (74-106); MAGNESIUM - SERUM 2.2 mg/dL (1.8-2.4); POTASSIUM - SERUM 3.7 mmol/L (3.5-5.1); PROTEIN - SERUM 6.7 g/dL (6.4-8.2); SODIUM 139 mmol/L (136-145); UREA NITROGEN 14 mg/dL (7-18); eGFR NON AFRICAN AMERICAN 88 mL/min (90-120)
[2020-08-30 07:21] LABS: LIPASE 33 U/L (73-393)
--- NOTE | 2020-08-30 08:00 | CN ---
PATIENT NAME:AUGIE NEGRO MEDICAL RECORD: [id number] : 82 LOCATION:[facility] [place] ADMIT DATE: 08/27/20 ACCOUNT: [id number] CONSULTING PHYSICIAN: GLORIA BOOKER MD REFERRING PHYSICIAN: CRISTIAN FARRELL MD DATE OF CONSULTATION: 08/29/2020 HISTORY OF PRESENT ILLNESS: A 40-year-old gentleman with a history of cardiac arrhythmias, SVT as well as sick sinus syndrome, status post pacemaker placement, admitted with pancreatitis at onset of chest pain. He has had negative angiography in the recent past as well as a telemetry showing no evidence of his SVT breakthrough. He reports some breakthrough late last month. We are asked to see him concerning his cardiovascular status. PAST MEDICAL HISTORY: Includes; 1. History of seizure disorder. 2. Hypertension. 3. Cardiac arrhythmia with SVT. 4. Recurrent pancreatitis. MEDICATIONS: Include [place] 10/325 every day, Lunesta 2 mg p.o. at bedtime, Ativan 0.5 q.6, sertraline 50 every day, metoprolol 25 b.i.d. ALLERGIES: PENICILLIN, FLEXERIL. SOCIAL HISTORY: Nonsmoker, nondrinker. No illicit drug use. No set of exercise program. Easily takes care of all his ADLs. REVIEW OF SYSTEMS: The patient reports easy bruising but reports no swollen glands. The patient reports no fever, no night sweats, no significant weight gain, no significant weight loss. No significant exercise tolerance. The patient reports no dry eyes, no irritation, no vision change. Patient reports no difficulty hearing and no ear pain. Patient reports no frequent nose bleeds or nose and sinus problems. Patient reports on arm pain on exertion. No shortness of breath while lying down. No history of heart murmur. Patient reports no cough, no wheezing or coughing up blood. Patient reports no abdominal pain, no vomiting. Normal appetite. No diarrhea and not vomiting blood. No nausea and no constipation. Patient reports no incontinence. No difficulty urinating. No hematuria. No increased frequency. Patient reports no muscle aches. No weakness, no arthralgias, no back pain. No swelling of the extremities. Patient reports no abnormal mole, no jaundice, no rashes. Reports no loss of consciousness. No weakness and no numbness. No seizures, dizziness, or headaches. The patient reports no depression, no sleep disturbance, feeling safe in a relationship and no alcohol abuse. Patient reports on fatigue. Reports no runny nose or sinus pressure. No itching, no hives, and no frequent sneezing. PHYSICAL EXAMINATION: GENERAL: No acute distress, appears stated age. VITAL SIGNS: Blood pressure 117/78, pulse 65 and regular. HEENT: Normocephalic, atraumatic. NECK: No JVD or bruit. HEART: Regular. No gallops are noted. LUNGS: Good air excursion. ABDOMEN: Mildly tender. No organomegaly. CONSULT REPORT [id number] AUGIE NEGRO EXTREMITIES: Pulses are 2+. No edema. NEUROLOGIC: Grossly intact. DIAGNOSTIC DATA: EKG with no significant ST-T changes. IMPRESSION: May be referred pain from pancreatitis. Cardiac enzyme is negative at this point. No EKG changes. I will check echo for any focal wall motion abnormalities. Further recommendations based on the above. TRANSINT:[id number] Voice Confirmation ID: [id number] DOCUMENT ID: [id number] GLORIA BOOKER MD at 0800 CC: [id number] DICTATION DATE: 08/29/20 0934 PRIVATE CHEF: 08/29/20 1635 ADM IN [facility] [address] [place] [address]
[2020-08-30 10:02] VITALS: BP 127/78
[2020-08-30 12:48] LABS: CKMB 0.3 U/L (0.0-3.6); CREATINE KINASE 50 UL (21-232); TROPONIN-I < 0.017 ng/mL (0.000-0.060)
[2020-08-30 14:07] VITALS: BP 116/80
--- NOTE | 2020-08-30 16:00 | NUR ---
PT EKG SHOWED NORMAL EKG, PATIENT THEN ASKED FOR TYLENOL FOR VARGAS, NOW IS ASKING FOR NITRO FOR CP. STATES HE TAKES IT AT HOME, CALLED MONITOR STATION AND PATIENT TELEMETRY IS 78 SR. CONTINUE WITH PLAN OF CARE
--- NOTE | 2020-08-30 16:15 | NUR ---
PATIENT C/O " FEELING DRAINED" HE HAS WALKED SEVERAL LAPS [facility] A FEW TIMES TODAY, ASKED HIM TO TAKE IT EASY AND WE WILL RECHECK BP WELL. CONTINUE WITH PLAN OF CARE
--- NOTE | 2020-08-30 18:58 | NUR ---
I have reviewed this patient and I concur with the Shift Assessment completed by the Licensed Practical Nurse today this shift.
[2020-08-30 18:59] VITALS: BP 117/72
[2020-08-30 19:03] LABS: CKMB 0.3 U/L (0.0-3.6); CREATINE KINASE 48 UL (21-232)
[2020-08-30 19:08] LABS: TROPONIN-I < 0.017 ng/mL (0.000-0.060)
--- NOTE | 2020-08-30 19:23 | NUR ---
ASSUMED CARE OF PT AFTER REPOR/ROUNDS. PT A&OX4 AND VERBALIZES WANTS/NEEDS CLEARLY AND WITHOUT DIFFICULTY OR HESITATION. DENIES PAIN AT THIS TIME AND LYING IN BED WATCHING TV TAKING TO SO ON PHONE.
[2020-08-30 20:00] VITALS: BP 108/80
[2020-08-31] VITALS: BP 105/68
[2020-08-31 00:58] LABS: CKMB 0.3 U/L (0.0-3.6); CREATINE KINASE 44 UL (21-232); TROPONIN-I < 0.017 ng/mL (0.000-0.060)
[2020-08-31 04:00] VITALS: BP 111/70
[2020-08-31 06:39] LABS: BASOPHILS 0.6 % (0-2); EOSINOPHILS 2.2 % (0-7); HEMOGLOBIN 14.3 g/dL (13.5-17.5); IMMATURE GRANULOCYTES 0.4 % (0-5); LYMPHOCYTE ABS# 1.72 10x3/uL (1.32-3.57); LYMPHOCYTES 31.7 % (15-50); MCH 30.2 pg (26.0-34.0); MCHC 35.8 g/dL (31.0-37.0); MCV 84.4 fL (80.0-100.0); MONOCYTES 12.5 % (2-11); NEUTROPHIL ABS# 2.86 10x3/uL (1.78-5.38); NEUTROPHILS 52.6 % (40-80); PLATELET COUNT 266 10x3/uL (130-400); RBC 4.74 10x6/uL (4.20-6.10); RDW 13.3 % (11.5-14.5); WBC 5.4 10x3/uL (4.8-10.8)
[2020-08-31 07:16] LABS: ALBUMIN 3.9 g/dL (3.4-5.0); ALKALINE PHOSPHATASE 85 U/L (30-120); ALT (SGPT) 121 U/L (10-68); AMYLASE - SERUM 22 U/L (25-115); CALC OSMOLALITY 275 mosm/kg (275-300); CALCIUM 9.6 mg/dL (8.5-10.1); CARBON DIOXIDE 26.8 mmol/L (21.0-32.0); CHLORIDE - SERUM 102 mmol/L (98-107); CREATININE - SERUM 0.9 mg/dL (0.6-1.3); GLUCOSE 83 mg/dL (74-106); MAGNESIUM - SERUM 2.4 mg/dL (1.8-2.4); POTASSIUM - SERUM 3.7 mmol/L (3.5-5.1); PROTEIN - SERUM 6.8 g/dL (6.4-8.2); SODIUM 138 mmol/L (136-145); UREA NITROGEN 14 mg/dL (7-18); eGFR NON AFRICAN AMERICAN > 90 mL/min (90-120)
[2020-08-31 07:17] LABS: LIPASE 38 U/L (73-393)
[2020-08-31 08:50] VITALS: BP 112/75
--- NOTE | 2020-08-31 10:23 | NUR ---
APTIENT CONCERNED WITH PAIN MEDICATION BEING DC, INFORMED PATIENT HE IS NOT GOING HOME ON IV PAIN MEDICATION AND IT MAY HAVE FALLEN OFF PATIENT CHART BUT I WANT TO DOUBLE CHECK WITH PROVIDER IF MEDICATION WILL BE RESTARTED OR IF PATIENT WILL BE PLACED ON ORAL PAIN MEDICATION. NO OTHER NEEDS AT THIS TIME, ADMINISTERED PRN MEDICATION WITH SCHEDULED MEDICATION. CONTINUE WITH PLAN OF CARE
[2020-08-31] MEDS ORDERED: Mylicon / Gas-X Che PO (11:30)
[2020-08-31] MEDS ORDERED: PROTONIX40 MG PO (11:30)
[2020-08-31] MEDS ORDERED: PEPCID40 MG PO (11:31)
--- NOTE | 2020-08-31 12:57 | MORECARE ---
CASE MANAGEMENT DISCHARGE SUMMARY PATIENT: AUGIE NEGRO UNIT: [id number] ADM DATE: 08/27/20 AGE: 40 : 82 SEX: M ROOM/BED: D.2213 AUTHOR: INA,DOC PHYSICIAN: REFERRING PHYSICIAN: CRISTIAN FARRELL MD DATE OF SERVICE: 08/31/20 Case Management Discharge Planning Summary DCP REVIEW SUMMARY ANTICIPATED D/C DATE: EXPECTED LOS : CASE STATUS: DCP Initiated INITIAL REVIEW: 08/27/2020 INITIAL REVIEWER: Anny Donnelly FINAL DISCHARGE DISPOSITION: 06 : Discharged/Trans to Home Under Care of Organized Home Health Service in Anticipation of Skilled Care FINAL REVIEWER: FINAL REVIEW DATE: DCP Focus Questions & Answers QUESTION: ANSWER : PATIENT: AUGIE NEGRO ENCOUNTER: [id number] MEDICAL RECORD#: [id number] ADMISSION DATE: 08/27/2020 DISCHARGE DATE: ATTENDING MD: JAMI FARRELL : AGE: 40 MARITAL STATUS: S DC PLAN ID: [id number] FACILITY: [facility] PRINTED ON: 08/31/20 12:57 CT All edits/amendments must be made on the electronic document DICTATION DATE: 08/31/20 1257 OFFICE ELECTRICIAN: DM 08/31/20 1257 RPT#: [id number] DC DATE: STATUS: ADM IN [facility] [address] [place] [address] END OF REPORT
--- NOTE | 2020-08-31 13:09 | MORECARE ---
CASE MANAGEMENT DISCHARGE SUMMARY PATIENT: AUGIE NEGRO UNIT: [id number] ADM DATE: 08/27/20 AGE: 40 : 82 SEX: M ROOM/BED: D.2213 AUTHOR: INA,LAURO PHYSICIAN: REFERRING PHYSICIAN: CRISTIAN FARRELL MD DATE OF SERVICE: 08/31/20 Case Management Discharge Planning Summary COMMENTS ENTERED DATE: 08/31/20 12:53 CT COMMENT TYPE: Discharge Planning REVIEWER: Anny Donnelly CM met with patient to complete initial dc planning assessment. CM educated patient on the CM role and verbal consent given by patient to complete assessment. Patient lives at home with his and child where he states he is independent with his care. At discharge patient plans to return home and feels this is a safe discharge. He really does not want to go home, I explained the IMM to him and he said he is considering appealing his discharge, but didn't want to be treated badly. I explained to him that he would not be treated any bad way if he felt like he needed to appeal his discharge. He stated that he came back to the hospital because of his pancreatitis again like last time. He stated that he got all of his medications and wasn't away long enough to go back to his follow up appointment. He plans on taking a taxi again to get home but was 1 dollar short. I gave him $2.00 to get home via taxi. He is current with [facility] and will resume their services when he is discharged. I will send clinicals over to them Patient denied known discharge needs at this time. CM will continue to follow and will assist as needed with dc plans/needs. DCP REVIEW SUMMARY ANTICIPATED D/C DATE: EXPECTED LOS : CASE STATUS: DCP Initiated INITIAL REVIEW: 08/27/2020 INITIAL REVIEWER: Anny Donnelly FINAL DISCHARGE DISPOSITION: 06 : Discharged/Trans to Home Under Care of Organized Home Health Service in Anticipation of Skilled Care FINAL REVIEWER: FINAL REVIEW DATE: DCP Focus Questions & Answers QUESTION: ANSWER : PATIENT: AUGIE NEGRO ENCOUNTER: [id number] MEDICAL RECORD#: [id number] ADMISSION DATE: 08/27/2020 DISCHARGE DATE: ATTENDING MD: JAMI FARRELL : AGE: 40 MARITAL STATUS: S DC PLAN ID: [id number] FACILITY: [facility] PRINTED ON: 08/31/20 13:09 CT All edits/amendments must be made on the electronic document DICTATION DATE: 08/31/201308 EVENT DECORATOR: DICK 08/31/20 130 RPT#: [id number] DC DATE: STATUS: ADM IN [facility] [address] [place] [address] END OF REPORT
[2020-08-31 14:48] VITALS: BP 110/69
--- NOTE | 2020-09-01 12:15 | EC ---
PATIENT:AUGIE NEGRO DATE OF SERVICE: 08/27/20 SEX: M MEDICAL RECORD: [id number] DATE OF : 82 LOCATION:D[facility] [place] AGE OF PATIENT: 40 ADMISSION DATE: 08/27/20 REFERRING PHYSICIAN: INTERPRETING PHYSICIAN: GLORIA BOOKER MD ECHOCARDIOGRAM REPORT ECHO CHARGES 4 ECHO COMPLETE Date: 08/30/20 CLINICAL DIAGNOSIS: CP ECHOCARDIOGRAPHIC MEASUREMENTS (adult normal given) AC root (d.<3.7cm) 2.9 cm LV Septum d (<1.2 cm> 0.7 cm Valve Excursion 1.5 cm LV Septum (systole) 1.2 cm Left Atria (s.<4.0cm> 2.9 cm LVPW d(<1.2cm) 0.9 cm RV (d.<2.3cm) 2.4 cm LVPW (sytole) 1.0 cm LV diastole(<5.6CM) 5.2 cm MV E-F(>70mm/sec) cm LV systole 3.7 cm LVOT Diameter 1.5 cm MV exc.(>10mm) 1.9 cm Est.ejection fraction (50-75%) % DOPPLER: LVIT cm/sec A 64 cm/sec E 87 cm/sec LA cm/sec RVSP 17 mmHg LVOT 134 cm/sec AOP1/2T m/s Asc. Ao 141 cm/sec RVOT 55 cm/sec RA cm/sec PA 72 cm/sec AV Gradient Peak 8.0 mmHg AV Mean 4.8 mmHg AV Area 1.6 cm MV Gradient Peak 3.8 mmHg MV Mean 1.5 mmHg MV Area cm COMMENTS: 3 Year Olds Preschool Teacher: Randolph [facility] Plastic Maker: 3 Dr. Jacques TAPE# Pericardial Effusion N DATE OF SERVICE: Adequate 2D, color-flow imaging, spectral Doppler, and M-Mode. FINDINGS: No LVH. LV internal dimension is normal. Wall motion is normal. EF is greater than or equal to 55%. Aortic valve is tricuspid. No evidence of stenosis by Doppler interrogation. Left atrium is normal at 3.9 cm. Mitral valve shows no prolapse. Trivial MR. Right side is grossly normal. Trivial TR. ECHOCARDIOGRAM REPORT [id number] AUGIE NEGRO TRANSINT:[id number] Voice Confirmation ID: [id number] DOCUMENT ID: [id number] GLORIA BOOKER MD at 1215 CC: [id number] DICTATION DATE: 08/31/20 1445 SPECIAL SERVICES AGENT: 08/31/209 DIS IN 08/31/20 [id number] [place] [address]
--- NOTE | 2020-09-01 12:23 | MORECARE ---
CASE MANAGEMENT DISCHARGE SUMMARY PATIENT: AUGIE NEGRO UNIT: [id number] ADM DATE: 08/27/20 AGE: 40 : 82 SEX: M ROOM/BED: D.2213 AUTHOR: LAURO BUCKLEY PHYSICIAN: REFERRING PHYSICIAN: CRISTIAN FARRELL MD DATE OF SERVICE: 09/01/20 Case Management Discharge Planning Summary COMMENTS ENTERED DATE: 08/31/20 12:53 CT COMMENT TYPE: Discharge Planning REVIEWER: Anny Donnelly CM met with patient to complete initial dc planning assessment. CM educated patient on the CM role and verbal consent given by patient to complete assessment. Patient lives at home with his and child where he states he is independent with his care. At discharge patient plans to return home and feels this is a safe discharge. He really does not want to go home, I explained the IMM to him and he said he is considering appealing his discharge, but didn't want to be treated badly. I explained to him that he would not be treated any bad way if he felt like he needed to appeal his discharge. He stated that he came back to the hospital because of his pancreatitis again like last time. He stated that he got all of his medications and wasn't away long enough to go back to his follow up appointment. He plans on taking a taxi again to get home but was 1 dollar short. I gave him $2.00 to get home via taxi. He is current with [facility] and will resume their services when he is discharged. I will send clinicals over to them Patient denied known discharge needs at this time. CM will continue to follow and will assist as needed with dc plans/needs. DCP REVIEW SUMMARY ANTICIPATED D/C DATE: EXPECTED LOS : CASE STATUS: DCP Initiated INITIAL REVIEW: 08/27/2020 INITIAL REVIEWER: Anny Donnelly FINAL DISCHARGE DISPOSITION: 06 : Discharged/Trans to Home Under Care of Organized Home Health Service in Anticipation of Skilled Care FINAL REVIEWER: FINAL REVIEW DATE: DCP Focus Questions & Answers QUESTION: ANSWER : PATIENT: AUGIE NEGRO ENCOUNTER: [id number] MEDICAL RECORD#: [id number] ADMISSION DATE: 08/27/2020 DISCHARGE DATE: 08/31/2020 ATTENDING MD: JAMI FARRELL : AGE: 40 MARITAL STATUS: S DC PLAN ID: [id number] FACILITY: [facility] PRINTED ON: 09/01/20 12:23 CT All edits/amendments must be made on the electronic document DICTATION DATE: 09/01/201222 HANDBOOK WRITER: DICK 09/01/201222 RPT#: [id number] DC DATE:08/31/20 STATUS: DIS IN [facility] [address] [place] [address] END OF REPORT
== END 2020-08-31 17:30 | disposition home health service (06) | DRG 440 ==
LOC: D.ER 19:22 → D.MS 22:24
PROVIDERS: Family Medicine; Student in an Organized Health Care Education/Training Program; ADMIT Family Medicine; ATTEND Family Medicine
DX: K85.80 Other acute pancreatitis without necrosis or infection (principal); R74.01 Elevation of levels of liver transaminase levels; I10 Essential (primary) hypertension; K21.9 Gastro-esophageal reflux disease without esophagitis; Z95.0 Presence of cardiac pacemaker; F41.8 Other specified anxiety disorders

== ENCOUNTER 2020-09-04 13:38 | Emergency (ER) | payer MEDICARE ==
[~2020-09-04] VITALS: Ht 180.3 cm; Wt 63.0 kg
[~2020-09-04 13:38] MED LIST changes: +Mylicon / Gas-X Che PO; +PEPCID40 MG PO; +PROTONIX40 MG PO
[2020-09-04 14:06] VITALS: BP 125/92; Ht 180.3 cm; Wt 63.0 kg
[2020-09-04 14:09] LABS: BASOPHILS 0.2 % (0-2); EOSINOPHILS 0.4 % (0-7); HEMOGLOBIN 15.1 g/dL (13.5-17.5); IMMATURE GRANULOCYTES 0.1 % (0-5); LYMPHOCYTE ABS# 1.15 10x3/uL (1.32-3.57); LYMPHOCYTES 14.3 % (15-50); MCH 30.7 pg (26.0-34.0); MCHC 36.8 g/dL (31.0-37.0); MCV 83.3 fL (80.0-100.0); MEAN PLATELET VOLUME 9.6 fL (7.4-10.4); MONOCYTES 7.6 % (2-11); NEUTROPHILS 77.4 % (40-80); PLATELET COUNT 259 10x3/uL (130-400); RBC 4.92 10x6/uL (4.20-6.10); RDW 12.9 % (11.5-14.5)
[2020-09-04 14:53] LABS: CALC OSMOLALITY 279 mosm/kg (275-300); CALCIUM 9.6 mg/dL (8.5-10.1); CARBON DIOXIDE 26.1 mmol/L (21.0-32.0); CHLORIDE - SERUM 100 mmol/L (98-107); POTASSIUM - SERUM 3.5 mmol/L (3.5-5.1); SODIUM 137 mmol/L (136-145); UREA NITROGEN 12 mg/dL (7-18); eGFR NON AFRICAN AMERICAN 88 mL/min (90-120)
[2020-09-04 14:55] LABS: GLUCOSE 212 mg/dL (74-106)
[2020-09-04 15:03] LABS: ALBUMIN 4.4 g/dL (3.4-5.0); ALKALINE PHOSPHATASE 89 U/L (30-120); ALT (SGPT) 119 U/L (10-68); AMYLASE - SERUM 37 U/L (25-115); LIPASE 91 U/L (73-393); PROTEIN - SERUM 7.6 g/dL (6.4-8.2)
[2020-09-04 15:04] LABS: TROPONIN-I < 0.017 ng/mL (0.000-0.060)
[2020-09-04 16:51] LABS: BILIRUBIN NEGATIVE (NEGATIVE); KETONE NEGATIVE (NEGATIVE); NITRITE NEGATIVE (NEGATIVE); UROBILINOGEN NORMAL mg/dL (< 2)
[2020-09-04 17:10] LABS: UDS - AMPHET NEGATIVE QUAL (NEGATIVE); UDS - BARB NEGATIVE QUAL (NEGATIVE); UDS - BENZO NEGATIVE QUAL (NEGATIVE); UDS - COCAINE NEGATIVE QUAL (NEGATIVE); UDS - OPIATE NEGATIVE QUAL (NEGATIVE); UDS - PCP NEGATIVE QUAL (NEGATIVE); UDS - THC NEGATIVE QUAL (NEGATIVE)
[2020-09-04] MEDS ORDERED: ZOFRAN ODT4 MG/UDTAB PO (17:27)
[2020-09-04] MEDS ORDERED: LOMOTIL 2.5-0.1 EAC1 PO (17:27)
== END 2020-09-04 17:57 | disposition home or self-care (01) ==
LOC: D.ER 13:38
PROVIDERS: Family Medicine
DX: R11.2 Nausea with vomiting, unspecified (principal); R19.7 Diarrhea, unspecified; R10.9 Unspecified abdominal pain; I10 Essential (primary) hypertension; Z95.0 Presence of cardiac pacemaker; F41.9 Anxiety disorder, unspecified; K21.9 Gastro-esophageal reflux disease without esophagitis

== ENCOUNTER 2020-09-05 23:57 | Emergency (ER) | payer MEDICARE ==
[~2020-09-05] VITALS: Ht 180.3 cm; Wt 61.8 kg
[~2020-09-05 23:57] MED LIST changes: +LOMOTIL 2.5-0.1 EAC1 PO; +ZOFRAN ODT4 MG/UDTAB PO
[2020-09-06] VITALS: Ht 180.3 cm; Wt 61.8 kg
[2020-09-06 01:12] LABS: BASOPHILS 0.3 % (0-2); HEMATOCRIT 35.7 % (42.0-54.0); HEMOGLOBIN 12.9 g/dL (13.5-17.5); IMMATURE GRANULOCYTES 0.1 % (0-5); LYMPHOCYTE ABS# 1.97 10x3/uL (1.32-3.57); MCH 30.3 pg (26.0-34.0); MCHC 36.1 g/dL (31.0-37.0); MCV 83.8 fL (80.0-100.0); MEAN PLATELET VOLUME 10.1 fL (7.4-10.4); MONOCYTES 12.6 % (2-11); NEUTROPHIL ABS# 5.73 10x3/uL (1.78-5.38); PLATELET COUNT 249 10x3/uL (130-400); RBC 4.26 10x6/uL (4.20-6.10); RDW 13.1 % (11.5-14.5)
[2020-09-06 01:28] LABS: CALC OSMOLALITY 275 mosm/kg (275-300); CALCIUM 9.2 mg/dL (8.5-10.1); CARBON DIOXIDE 27.3 mmol/L (21.0-32.0); CHLORIDE - SERUM 102 mmol/L (98-107); CREATININE - SERUM 0.9 mg/dL (0.6-1.3); POTASSIUM - SERUM 3.7 mmol/L (3.5-5.1); SODIUM 139 mmol/L (136-145); UREA NITROGEN 11 mg/dL (7-18); eGFR NON AFRICAN AMERICAN > 90 mL/min (90-120)
[2020-09-06 01:30] LABS: APTT 27.9 SECONDS (22.8-39.4); GLUCOSE 86 mg/dL (74-106); INR 1.24 (0.85-1.17); PROTIME 14.5 SECONDS (11.6-15.0)
[2020-09-06 01:42] LABS: ALKALINE PHOSPHATASE 75 U/L (30-120); BILIRUBIN - TOTAL 0.99 mg/dL (0.2-1.3); CKMB 0.4 U/L (0.0-3.6); CREATINE KINASE 76 UL (21-232); PROTEIN - SERUM 6.7 g/dL (6.4-8.2)
[2020-09-06 01:44] LABS: ALT (SGPT) 76 U/L (10-68); TROPONIN-I < 0.017 ng/mL (0.000-0.060)
[2020-09-06] MEDS ORDERED: LEVOFLOXACIN500 MG PO (03:50)
[2020-09-06] MEDS ORDERED: FLAGYL500 MG PO (03:50)
[2020-09-06 04:08] VITALS: BP 105/66
== END 2020-09-06 04:08 | disposition home or self-care (01) ==
LOC: D.ER 23:57
PROVIDERS: Family Medicine
DX: K52.9 Noninfective gastroenteritis and colitis, unspecified (principal); R07.9 Chest pain, unspecified; I10 Essential (primary) hypertension; Z95.0 Presence of cardiac pacemaker; K21.9 Gastro-esophageal reflux disease without esophagitis; R10.9 Unspecified abdominal pain; R11.2 Nausea with vomiting, unspecified

== ENCOUNTER 2020-09-06 10:53 | Emergency (ER) | payer MEDICARE ==
[~2020-09-06] VITALS: Ht 180.3 cm; Wt 54.5 kg
[~2020-09-06 10:53] MED LIST changes: +FLAGYL500 MG PO; +LEVOFLOXACIN500 MG PO
[2020-09-06 10:59] VITALS: Ht 180.3 cm; Wt 54.5 kg
[2020-09-06 11:55] VITALS: BP 125/82
--- NOTE | 2020-09-06 12:38 | MORECARE ---
CASE MANAGEMENT DISCHARGE SUMMARY PATIENT: AUGIE NEGRO UNIT: [id number] ADM DATE: AGE: 40 : 82 SEX: M ROOM/BED: AUTHOR: INA,DOC PHYSICIAN: REFERRING PHYSICIAN: GEORGINA BENNETT MD DATE OF SERVICE: 09/06/20 Case Management Discharge Planning Summary DCP REVIEW SUMMARY ANTICIPATED D/C DATE: EXPECTED LOS : CASE STATUS: DCP Initiated INITIAL REVIEW: 09/06/2020 INITIAL REVIEWER: Rosalina Harmon FINAL DISCHARGE DISPOSITION: : FINAL REVIEWER: FINAL REVIEW DATE: DCP Focus Questions & Answers QUESTION: ANSWER : PATIENT: AUGIE NEGRO ENCOUNTER: [id number] MEDICAL RECORD#: [id number] ADMISSION DATE: 09/06/2020 DISCHARGE DATE: 09/06/2020 ATTENDING MD: GEORGINA MÉNDEZ : AGE: 40 MARITAL STATUS: S DC PLAN ID: [id number] FACILITY: [facility] PRINTED ON: 09/06/20 12:38 CT All edits/amendments must be made on the electronic document DICTATION DATE: 09/06/20 1238 KNITTER MECHANIC: DM 09/06/20 1238 RPT#: [id number] DC DATE:09/06/20 STATUS: [facility] [address] [place] [address] END OF REPORT
--- NOTE | 2020-09-06 12:51 | MORECARE ---
CASE MANAGEMENT DISCHARGE SUMMARY PATIENT: AUGIE NEGRO UNIT: [id number] ADM DATE: AGE: 40 : 82 SEX: M ROOM/BED: AUTHOR: INA,DOC PHYSICIAN: REFERRING PHYSICIAN: GEORGINA FLORES MD DATE OF SERVICE: 09/06/20 Case Management Discharge Planning Summary COMMENTS ENTERED DATE: 09/06/20 12:35 CT COMMENT TYPE: Discharge Planning REVIEWER: Rosalina Harmon CM received call from Dr. Flores requesting assistance purchasing patient's Cipro 500mg PO BID x 10 days and Flagyl 500mg PO BID x 10days. CM called [facility] and got [place] of $29.33. CM obtained money from [employer] and took it to [facility] to pay for patient's medicine. CM informed ER nurse that medications have been pre-paid for patient to berry picker from [facility] at [address] [place] [address]. Nurse verbalized understanding and will let patient know. DCP REVIEW SUMMARY ANTICIPATED D/C DATE: EXPECTED LOS : CASE STATUS: DCP Initiated INITIAL REVIEW: 09/06/2020 INITIAL REVIEWER: Rosalina Harmon FINAL DISCHARGE DISPOSITION: : FINAL REVIEWER: FINAL REVIEW DATE: DCP Focus Questions & Answers QUESTION: ANSWER : PATIENT: AUGIE NEGRO ENCOUNTER: [id number] MEDICAL RECORD#: [id number] ADMISSION DATE: 09/06/2020 DISCHARGE DATE: 09/06/2020 ATTENDING MD: GEORGINA MÉNDEZ : AGE: 40 MARITAL STATUS: S DC PLAN ID: [id number] FACILITY: [facility] PRINTED ON: 09/06/20 12:51 CT All edits/amendments must be made on the electronic document DICTATION DATE: 09/06/20 1251 METAL FURNITURE PANEL COVERER: DM 09/06/20 1251 RPT#: [id number] DC DATE:09/06/20 STATUS: [address] [address] END OF REPORT
== END 2020-09-06 11:55 | disposition home or self-care (01) ==
LOC: D.ER 10:53
DX: K52.9 Noninfective gastroenteritis and colitis, unspecified (principal); I10 Essential (primary) hypertension; Z95.0 Presence of cardiac pacemaker; K21.9 Gastro-esophageal reflux disease without esophagitis; R10.9 Unspecified abdominal pain

== ENCOUNTER 2020-09-10 17:34 | Emergency (ER) | payer MEDICARE ==
[~2020-09-10] VITALS: Ht 180.3 cm; Wt 63.2 kg
[2020-09-10 17:37] VITALS: BP 167/91
[2020-09-10 17:55] LABS: BILIRUBIN NEGATIVE (NEGATIVE); KETONE NEGATIVE (NEGATIVE); NITRITE NEGATIVE (NEGATIVE); UROBILINOGEN NORMAL mg/dL (< 2)
[2020-09-10 18:45] LABS: EOSINOPHILS 1.6 % (0-7); HEMATOCRIT 40.2 % (42.0-54.0); HEMOGLOBIN 14.1 g/dL (13.5-17.5); LYMPHOCYTES 27.7 % (15-50); MCH 29.8 pg (26.0-34.0); MCHC 35.1 g/dL (31.0-37.0); MCV 84.9 fL (80.0-100.0); MONOCYTES 10.6 % (2-11); NEUTROPHILS 59.1 % (40-80); RBC 4.73 10x6/uL (4.20-6.10); RDW 14.1 % (11.5-14.5); WBC 6.5 10x3/uL (4.8-10.8)
[2020-09-10 18:48] LABS: PLATELET COUNT 335 10x3/uL (130-400)
[2020-09-10 18:52] LABS: CALC OSMOLALITY 276 mosm/kg (275-300); CALCIUM 9.3 mg/dL (8.5-10.1); CARBON DIOXIDE 30.6 mmol/L (21.0-32.0); CHLORIDE - SERUM 103 mmol/L (98-107); CREATININE - SERUM 0.7 mg/dL (0.6-1.3); GLUCOSE 102 mg/dL (74-106); POTASSIUM - SERUM 3.4 mmol/L (3.5-5.1); SODIUM 140 mmol/L (136-145); UREA NITROGEN 6 mg/dL (7-18); eGFR NON AFRICAN AMERICAN > 90 mL/min (90-120)
[2020-09-10 19:01] LABS: ALBUMIN 4.3 g/dL (3.4-5.0); ALKALINE PHOSPHATASE 75 U/L (30-120); ALT (SGPT) 68 U/L (10-68); AMYLASE - SERUM 32 U/L (25-115); BILIRUBIN - TOTAL 0.49 mg/dL (0.2-1.3); LIPASE 99 U/L (73-393); PROTEIN - SERUM 7.3 g/dL (6.4-8.2); TROPONIN-I < 0.017 ng/mL (0.000-0.060)
[2020-09-11] MEDS ORDERED: PREDNISONE20 MG PO (06:46)
[2020-09-13 15:01] VITALS: Ht 180.3 cm; Wt 63.2 kg
== END 2020-09-10 18:30 | disposition left against medical advice (07) ==
LOC: D.ER 17:34
PROVIDERS: Emergency Medicine
DX: R10.9 Unspecified abdominal pain (principal)

== ENCOUNTER 2020-09-11 05:38 | Emergency (ER) | payer MEDICARE ==
[~2020-09-11] VITALS: Ht 180.3 cm; Wt 63.2 kg
[2020-09-11 05:39] VITALS: Ht 180.3 cm; Wt 63.2 kg
[2020-09-11 05:52] LABS: BASOPHILS 1.3 % (0-2); HEMATOCRIT 37.8 % (42.0-54.0); HEMOGLOBIN 13.6 g/dL (13.5-17.5); LYMPHOCYTES 27.9 % (15-50); MCH 30.4 pg (26.0-34.0); MCV 84.4 fL (80.0-100.0); MEAN PLATELET VOLUME 7.3 fL (7.4-10.4); MONOCYTES 10.8 % (2-11); PLATELET COUNT 312 10x3/uL (130-400); RBC 4.48 10x6/uL (4.20-6.10); RDW 13.9 % (11.5-14.5)
[2020-09-11 05:57] LABS: WBC 4.7 10x3/uL (4.8-10.8)
[2020-09-11 05:58] LABS: CALC OSMOLALITY 275 mosm/kg (275-300); CALCIUM 9.2 mg/dL (8.5-10.1); CARBON DIOXIDE 26.2 mmol/L (21.0-32.0); CHLORIDE - SERUM 104 mmol/L (98-107); CREATININE - SERUM 0.8 mg/dL (0.6-1.3); GLUCOSE 91 mg/dL (74-106); POTASSIUM - SERUM 3.6 mmol/L (3.5-5.1); SODIUM 139 mmol/L (136-145); UREA NITROGEN 6 mg/dL (7-18); eGFR NON AFRICAN AMERICAN > 90 mL/min (90-120)
[2020-09-11 06:04] LABS: ALKALINE PHOSPHATASE 68 U/L (30-120); ALT (SGPT) 64 U/L (10-68); BILIRUBIN - TOTAL 0.63 mg/dL (0.2-1.3); PROTEIN - SERUM 6.7 g/dL (6.4-8.2)
[2020-09-11 06:07] LABS: LIPASE 66 U/L (73-393)
[2020-09-11 06:23] LABS: BILIRUBIN NEGATIVE (NEGATIVE); KETONE SMALL mg/dL (NEGATIVE); NITRITE NEGATIVE (NEGATIVE); UROBILINOGEN NORMAL mg/dL (< 2)
[2020-09-11 06:24] LABS: BACTERIA FEW HPF (NONE SEEN); SQUAMOUS EPITHELIAL 0-5 HPF (0-4); WHITE CELLS - URINE 2 HPF (0-1)
[2020-09-11 06:34] LABS: UDS - AMPHET NEGATIVE QUAL (NEGATIVE); UDS - BARB NEGATIVE QUAL (NEGATIVE); UDS - BENZO NEGATIVE QUAL (NEGATIVE); UDS - COCAINE NEGATIVE QUAL (NEGATIVE); UDS - OPIATE NEGATIVE QUAL (NEGATIVE); UDS - PCP NEGATIVE QUAL (NEGATIVE); UDS - THC NEGATIVE QUAL (NEGATIVE)
[2020-09-11] MEDS ORDERED: PREDNISONE20 MG PO (06:46)
[2020-09-11 06:55] VITALS: BP 146/88
[2020-09-12] MEDS ORDERED: FIBERCON625 MG PO (10:44)
[2020-09-12] MEDS ORDERED: FLORASTOR250 MG PO (10:44)
[2020-09-12] MEDS ORDERED: LEVSIN/ANASP0.125 MG PO (10:44)
[2020-09-12] MEDS ORDERED: CIPRO500 MG PO (21:30)
== END 2020-09-11 06:55 | disposition home or self-care (01) ==
LOC: D.ER 05:38
PROVIDERS: Student in an Organized Health Care Education/Training Program
DX: R10.10 Upper abdominal pain, unspecified (principal); I10 Essential (primary) hypertension; Z95.0 Presence of cardiac pacemaker; K21.9 Gastro-esophageal reflux disease without esophagitis

== ENCOUNTER 2020-09-12 07:52 | Emergency (ER) | payer MEDICARE ==
[~2020-09-12] VITALS: Ht 180.3 cm; Wt 63.2 kg
[~2020-09-12 07:52] MED LIST changes: +PREDNISONE20 MG PO
[2020-09-12 07:53] VITALS: Ht 180.3 cm; Wt 63.2 kg
[2020-09-12 08:16] VITALS: BP 126/87
[2020-09-12 08:16] LABS: BASOPHILS 0.5 % (0-2); EOSINOPHILS 0.3 % (0-7); HEMOGLOBIN 12.8 g/dL (13.5-17.5); LYMPHOCYTES 20.3 % (15-50); MCH 30.1 pg (26.0-34.0); MCHC 35.7 g/dL (31.0-37.0); MCV 84.4 fL (80.0-100.0); MEAN PLATELET VOLUME 7.9 fL (7.4-10.4); MONOCYTES 8.4 % (2-11); NEUTROPHILS 70.5 % (40-80); PLATELET COUNT 331 10x3/uL (130-400); RBC 4.26 10x6/uL (4.20-6.10); RDW 13.4 % (11.5-14.5)
[2020-09-12 08:20] LABS: WBC 9.7 10x3/uL (4.8-10.8)
[2020-09-12 08:24] LABS: CALC OSMOLALITY 280 mosm/kg (275-300); CALCIUM 9.4 mg/dL (8.5-10.1); CARBON DIOXIDE 27.4 mmol/L (21.0-32.0); CHLORIDE - SERUM 105 mmol/L (98-107); CREATININE - SERUM 0.9 mg/dL (0.6-1.3); POTASSIUM - SERUM 3.2 mmol/L (3.5-5.1); SODIUM 141 mmol/L (136-145); UREA NITROGEN 7 mg/dL (7-18); eGFR NON AFRICAN AMERICAN > 90 mL/min (90-120)
[2020-09-12 08:27] LABS: APTT 25.6 SECONDS (22.8-39.4); INR 1.3 (0.85-1.17)
[2020-09-12 08:36] LABS: GLUCOSE 140 mg/dL (74-106)
[2020-09-12 08:39] LABS: ALBUMIN 3.9 g/dL (3.4-5.0); ALKALINE PHOSPHATASE 61 U/L (30-120); ALT (SGPT) 55 U/L (10-68); AMYLASE - SERUM 28 U/L (25-115); BILIRUBIN - TOTAL 0.41 mg/dL (0.2-1.3); CKMB 0.4 U/L (0.0-3.6); CREATINE KINASE 72 UL (21-232); LIPASE 76 U/L (73-393); MAGNESIUM - SERUM 1.9 mg/dL (1.8-2.4); PROTEIN - SERUM 6.7 g/dL (6.4-8.2)
[2020-09-12 08:42] LABS: TROPONIN-I < 0.017 ng/mL (0.000-0.060)
[2020-09-12 10:00] LABS: UDS - AMPHET NEGATIVE QUAL (NEGATIVE); UDS - BARB NEGATIVE QUAL (NEGATIVE); UDS - BENZO NEGATIVE QUAL (NEGATIVE); UDS - COCAINE NEGATIVE QUAL (NEGATIVE); UDS - OPIATE NEGATIVE QUAL (NEGATIVE); UDS - PCP NEGATIVE QUAL (NEGATIVE); UDS - THC NEGATIVE QUAL (NEGATIVE)
[2020-09-12] MEDS ORDERED: LEVSIN/ANASP0.125 MG PO (10:44)
[2020-09-12] MEDS ORDERED: FLORASTOR250 MG PO (10:44)
[2020-09-12] MEDS ORDERED: FIBERCON625 MG PO (10:44)
[2020-09-12] MEDS ORDERED: CIPRO500 MG PO (21:30)
[2020-09-13] MEDS ORDERED: ACETAMINOPHEN500 M1 PO (01:05)
[2020-09-13] MEDS ORDERED: MOTRIN600 MG PO (01:05)
[2020-09-13] MEDS ORDERED: PROTONIX40 MG PO (01:07)
== END 2020-09-12 13:21 | disposition home or self-care (01) ==
LOC: D.ER 07:52
PROVIDERS: Family Medicine
DX: R10.9 Unspecified abdominal pain (principal); R00.2 Palpitations; I47.1 Supraventricular tachycardia; I10 Essential (primary) hypertension; Z95.0 Presence of cardiac pacemaker

== ENCOUNTER 2020-09-12 21:25 | Inpatient (IN) | payer MEDICARE ==
[~2020-09-12] VITALS: Ht 180.3 cm; Wt 63.0 kg
[~2020-09-12 21:25] MED LIST changes: +FIBERCON625 MG PO; +FLORASTOR250 MG PO; +LEVSIN/ANASP0.125 MG PO
[2020-09-12] MEDS ORDERED: CIPRO500 MG PO (21:30)
[2020-09-12 21:54] LABS: EOSINOPHILS 0.8 % (0-7); HEMATOCRIT 36.2 % (42.0-54.0); HEMOGLOBIN 13.1 g/dL (13.5-17.5); LYMPHOCYTES 34.8 % (15-50); MCH 30.2 pg (26.0-34.0); MCHC 36.1 g/dL (31.0-37.0); MCV 83.6 fL (80.0-100.0); MEAN PLATELET VOLUME 7.5 fL (7.4-10.4); MONOCYTES 11.6 % (2-11); NEUTROPHILS 51.8 % (40-80); PLATELET COUNT 326 10x3/uL (130-400); RBC 4.33 10x6/uL (4.20-6.10); RDW 14.1 % (11.5-14.5); WBC 7.4 10x3/uL (4.8-10.8)
[2020-09-12 22:05] LABS: CALC OSMOLALITY 272 mosm/kg (275-300); CALCIUM 9.5 mg/dL (8.5-10.1); CARBON DIOXIDE 26.3 mmol/L (21.0-32.0); CHLORIDE - SERUM 102 mmol/L (98-107); GLUCOSE 97 mg/dL (74-106); POTASSIUM - SERUM 3.5 mmol/L (3.5-5.1); SODIUM 138 mmol/L (136-145); eGFR NON AFRICAN AMERICAN 88 mL/min (90-120)
[2020-09-12 22:07] LABS: UREA NITROGEN 5 mg/dL (7-18)
[2020-09-12 22:15] LABS: ALBUMIN 4.1 g/dL (3.4-5.0); ALKALINE PHOSPHATASE 56 U/L (30-120); ALT (SGPT) 60 U/L (10-68); BILIRUBIN - TOTAL 0.58 mg/dL (0.2-1.3); LIPASE 57 U/L (73-393); PROTEIN - SERUM 6.7 g/dL (6.4-8.2)
[2020-09-12 22:16] LABS: TROPONIN-I < 0.017 ng/mL (0.000-0.060)
[2020-09-12 23:05] VITALS: BP 163/106
[2020-09-12 23:40] LABS: BILIRUBIN NEGATIVE (NEGATIVE); KETONE NEGATIVE (NEGATIVE); NITRITE NEGATIVE (NEGATIVE); UROBILINOGEN NORMAL mg/dL (< 2)
[2020-09-13] VITALS: BP 126/82
--- NOTE | 2020-09-13 01:00 | NUR ---
RECEIVED PT TO FLOOR FROM ER VIA WHEELCHAIR. PT AMBULATORY. PT DENIES NAUSEA. RECEIVED URINE SAMPLE AND SENT TO LAB. ATTEMPTED TO GET STOOL SAMPLE, PT ONLY PASSED GAS. REVIEWED HOME MEDS AND HISTORY. PT C/O CHEST PAIN 08/30. GAVE MORPHINE 1 MG IV PUSH. SCD'S ON AND INCENTIVE SPIROMETER INSTRUCTED AND ENCOURAGED. IV FLUIDS INITIATED. NO OTHER NEEDS. WILL CONTINUE TO MONITOR.
[2020-09-13] MEDS ORDERED: MOTRIN600 MG PO (01:05)
[2020-09-13] MEDS ORDERED: ACETAMINOPHEN500 M1 PO (01:05)
[2020-09-13] MEDS ORDERED: PROTONIX40 MG PO (01:07)
[2020-09-13 02:15] VITALS: BMI 19.4
[2020-09-13 03:18] LABS: UDS - AMPHET NEGATIVE QUAL (NEGATIVE); UDS - BARB NEGATIVE QUAL (NEGATIVE); UDS - BENZO NEGATIVE QUAL (NEGATIVE); UDS - COCAINE NEGATIVE QUAL (NEGATIVE); UDS - OPIATE NEGATIVE QUAL (NEGATIVE); UDS - PCP NEGATIVE QUAL (NEGATIVE); UDS - THC NEGATIVE QUAL (NEGATIVE)
[2020-09-13 04:00] VITALS: BP 108/63
[2020-09-13 07:05] LABS: APTT 27.7 SECONDS (22.8-39.4); INR 1.33 (0.85-1.17); PROTIME 15.2 SECONDS (11.6-15.0)
[2020-09-13 07:12] LABS: CKMB 0.2 U/L (0.0-3.6); CREATINE KINASE 43 UL (21-232); TROPONIN-I < 0.017 ng/mL (0.000-0.060)
--- NOTE | 2020-09-13 08:47 | NUR ---
HOME HEALTH CALLED TO CHECK ON PT, INFORMED CLOTH COVERED HELMET PULLER THAT PT CAME IN FOR N/V/D BUT LATER COMPLAINED OF CHEST PAIN THAT HE WAS ADMITTED FOR OBS, DOES NOT SEEM TO BE CARDIAC RELATED, PT COMPLAINS OF LEFT SIDED RIB AREA PAIN 4-09/30. NO N/V/D SINCE ADMIT
--- NOTE | 2020-09-13 09:17 | NUR ---
PT LAYING IN BED RESTING, STATES PAIN IS 6/10 AND LOCATED UNDER HIS LEFT ARM AROUND THE 4TH-6TH RIB, WORSENS WITH DEEP BREATHING, NO FRICTION RUB OR STRIDOR ON ASCULTATION. PT STATES HE WAS SUPPOSE TO BE ON ANTIBIOTICS FOR GI BACTERIAL INFECTION AND HAS NOT COMPLETED THE REGIMEN AND ASKED IF HE WOULD BE GETTING THEM WHILE HE IS HERE
[2020-09-13 10:00] LABS: EOSINOPHILS 0.6 % (0-7); HEMATOCRIT 36.9 % (42.0-54.0); HEMOGLOBIN 12.9 g/dL (13.5-17.5); LYMPHOCYTES 37.3 % (15-50); MCH 30.5 pg (26.0-34.0); MCHC 35.1 g/dL (31.0-37.0); MEAN PLATELET VOLUME 8.4 fL (7.4-10.4); MONOCYTES 9.6 % (2-11); NEUTROPHILS 51.5 % (40-80); PLATELET COUNT 344 10x3/uL (130-400); RBC 4.25 10x6/uL (4.20-6.10); RDW 14.3 % (11.5-14.5); WBC 7.5 10x3/uL (4.8-10.8)
[2020-09-13 10:04] LABS: ERYTHROCYTE SEDIMENTATION RATE 5 mm/hr (0-15)
[2020-09-13 10:07] LABS: ALBUMIN 3.9 g/dL (3.4-5.0); ALKALINE PHOSPHATASE 58 U/L (30-120); ALT (SGPT) 57 U/L (10-68); BILIRUBIN - TOTAL 0.49 mg/dL (0.2-1.3); CALC OSMOLALITY 274 mosm/kg (275-300); CALCIUM 9.2 mg/dL (8.5-10.1); CARBON DIOXIDE 24.9 mmol/L (21.0-32.0); CHLORIDE - SERUM 104 mmol/L (98-107); GLUCOSE 81 mg/dL (74-106); PROTEIN - SERUM 6.6 g/dL (6.4-8.2); SODIUM 140 mmol/L (136-145); UREA NITROGEN 5 mg/dL (7-18); eGFR NON AFRICAN AMERICAN 88 mL/min (90-120)
[2020-09-13 10:18] LABS: MCV 86.8 fL (80.0-100.0)
[2020-09-13 10:49] VITALS: BP 110/80
[2020-09-13 12:28] VITALS: BP 133/44
[2020-09-13 15:01] VITALS: Ht 180.3 cm; Wt 63.0 kg
[2020-09-13 18:16] VITALS: BP 134/87
[2020-09-13 20:00] VITALS: BP 127/84
[2020-09-14] VITALS (7 sets, daily range): BP systolic 91–132; BP diastolic 52–77
[2020-09-14 05:56] LABS: BASOPHILS 0.9 % (0-2); EOSINOPHILS 2.6 % (0-7); HEMATOCRIT 38.9 % (42.0-54.0); HEMOGLOBIN 13.8 g/dL (13.5-17.5); LYMPHOCYTES 36.6 % (15-50); MCH 29.9 pg (26.0-34.0); MCHC 35.4 g/dL (31.0-37.0); MEAN PLATELET VOLUME 7.7 fL (7.4-10.4); MONOCYTES 11.6 % (2-11); NEUTROPHILS 48.3 % (40-80); PLATELET COUNT 339 10x3/uL (130-400); RBC 4.61 10x6/uL (4.20-6.10); RDW 14.1 % (11.5-14.5); WBC 6.2 10x3/uL (4.8-10.8)
[2020-09-14 06:21] LABS: MCV 84.4 fL (80.0-100.0)
[2020-09-14 06:40] LABS: ALBUMIN 3.8 g/dL (3.4-5.0); ALKALINE PHOSPHATASE 59 U/L (30-120); ALT (SGPT) 49 U/L (10-68); BILIRUBIN - TOTAL 0.68 mg/dL (0.2-1.3); CALCIUM 9.2 mg/dL (8.5-10.1); CHLORIDE - SERUM 101 mmol/L (98-107); CREATININE - SERUM 0.9 mg/dL (0.6-1.3); MAGNESIUM - SERUM 2.1 mg/dL (1.8-2.4); POTASSIUM - SERUM 3.4 mmol/L (3.5-5.1); PROTEIN - SERUM 6.6 g/dL (6.4-8.2); SODIUM 137 mmol/L (136-145); eGFR NON AFRICAN AMERICAN > 90 mL/min (90-120)
[2020-09-14 06:43] LABS: CALC OSMOLALITY 269 mosm/kg (275-300); GLUCOSE 62 mg/dL (74-106); UREA NITROGEN 8 mg/dL (7-18)
--- NOTE | 2020-09-14 14:21 | NUR ---
PT GONE FOR GASTRIC EMPTYING STUDY
[2020-09-15] VITALS: BP 86/52
[2020-09-15 01:25] VITALS: BP 102/72
[2020-09-15 04:00] VITALS: BP 102/60
[2020-09-15 06:20] LABS: BASOPHILS 0.6 % (0-2); EOSINOPHILS 2.7 % (0-7); HEMATOCRIT 38.6 % (42.0-54.0); HEMOGLOBIN 13.6 g/dL (13.5-17.5); LYMPHOCYTES 35.2 % (15-50); MCH 30.1 pg (26.0-34.0); MCHC 35.4 g/dL (31.0-37.0); MCV 84.9 fL (80.0-100.0); MEAN PLATELET VOLUME 7.7 fL (7.4-10.4); MONOCYTES 14.3 % (2-11); NEUTROPHILS 47.2 % (40-80); PLATELET COUNT 330 10x3/uL (130-400); RBC 4.54 10x6/uL (4.20-6.10); RDW 13.7 % (11.5-14.5)
[2020-09-15 06:38] LABS: ALBUMIN 3.6 g/dL (3.4-5.0); ALKALINE PHOSPHATASE 57 U/L (30-120); ALT (SGPT) 48 U/L (10-68); BILIRUBIN - TOTAL 0.59 mg/dL (0.2-1.3); CALC OSMOLALITY 272 mosm/kg (275-300); CALCIUM 8.9 mg/dL (8.5-10.1); CARBON DIOXIDE 27.4 mmol/L (21.0-32.0); CHLORIDE - SERUM 104 mmol/L (98-107); CREATININE - SERUM 0.8 mg/dL (0.6-1.3); GLUCOSE 74 mg/dL (74-106); MAGNESIUM - SERUM 2.2 mg/dL (1.8-2.4); POTASSIUM - SERUM 3.9 mmol/L (3.5-5.1); PROTEIN - SERUM 6.2 g/dL (6.4-8.2); SODIUM 138 mmol/L (136-145); UREA NITROGEN 8 mg/dL (7-18); eGFR NON AFRICAN AMERICAN > 90 mL/min (90-120)
--- NOTE | 2020-09-15 09:10 | NUR ---
PT RESTING QUIETLY IN BED. REPORTS PAIN 7/10 AT THIS TIME AND ANXIETY. PT REQUEST PAIN MEDICATION AND ATIVAN AT THIS TIME. EDUCATED PT REGARDING NEXT TIME PAIN MEDICATION CAN BE ADMINISTERED AND INFORMED PT THAT ATIVAN COULD BE ADMINISTERED THEN IN 1 1/2 HOURS COULD ADMINISTER PAIN MED. PT VOICES UNDERSTANDING AND AGGREEABLE TO THIS. IV TO RIGTH FOREARM WITH 1/2 NS @ 125ML/HR INFUSING VIA PUMP, SALINE LOC TO LEFT AC BOTH SITES WITHOUT REDNESS OR EDEMA. PT REMAINS NPO FOR SCHEDULED EGD LATER THIS AFTERNOON. PT DENIES FURTHER NEEDS AT THIS TIME. CL WITHIN REACH. ENCOURAGED TO CALL WITH NEEDS. CONTINUE POC
[2020-09-15 09:26] VITALS: BP 108/61
--- NOTE | 2020-09-15 14:31 | NUR ---
Nutrition follow-up: Pt out of room at time of RDN visit Scheduled for EGD today Pt with probable gastroparesis after GES Pt continues NPO until after testing Labs reviewed Wt: 138# Will need nutrition support if diet unable to start after todays test. Recommend: For short-term nutrition support, ProcalAmine PPN @ 100 ml/hr Follow-up: 09/17/20
[2020-09-15 14:41] VITALS: BP 121/76
--- NOTE | 2020-09-15 17:49 | NUR ---
REQUESTED AND GIVEN 4MG MORPHINE SLOW IVP FOR C/O LEFT ABDOMINAL PAIN LEVEL 6. WILL MONITOR.
[2020-09-15 20:00] VITALS: BP 107/68
--- NOTE | 2020-09-15 20:00 | NUR ---
ALERT UP AMBULATING IN HALLWAY, DENIES PAIN OR NEEDS AT THIS TIME, SEE SHIFT ASSESSMENT CALL KATHY ZUNIAG
[2020-09-16] VITALS: BP 93/56
[2020-09-16 04:00] VITALS: BP 105/61
[2020-09-16 06:06] LABS: BASOPHILS 1.1 % (0-2); EOSINOPHILS 2.8 % (0-7); HEMATOCRIT 36.2 % (42.0-54.0); HEMOGLOBIN 12.9 g/dL (13.5-17.5); LYMPHOCYTES 34.2 % (15-50); MCH 30.1 pg (26.0-34.0); MCHC 35.5 g/dL (31.0-37.0); MCV 84.8 fL (80.0-100.0); MEAN PLATELET VOLUME 7.8 fL (7.4-10.4); MONOCYTES 14.6 % (2-11); NEUTROPHILS 47.3 % (40-80); PLATELET COUNT 318 10x3/uL (130-400); RBC 4.26 10x6/uL (4.20-6.10); RDW 13.6 % (11.5-14.5); WBC 5.5 10x3/uL (4.8-10.8)
[2020-09-16 06:26] LABS: ALBUMIN 3.5 g/dL (3.4-5.0); ALKALINE PHOSPHATASE 50 U/L (30-120); ALT (SGPT) 41 U/L (10-68); CALC OSMOLALITY 275 mosm/kg (275-300); CALCIUM 8.6 mg/dL (8.5-10.1); CARBON DIOXIDE 27.8 mmol/L (21.0-32.0); CHLORIDE - SERUM 105 mmol/L (98-107); CREATININE - SERUM 0.7 mg/dL (0.6-1.3); GLUCOSE 73 mg/dL (74-106); MAGNESIUM - SERUM 2.1 mg/dL (1.8-2.4); POTASSIUM - SERUM 3.4 mmol/L (3.5-5.1); SODIUM 140 mmol/L (136-145); UREA NITROGEN 6 mg/dL (7-18); eGFR NON AFRICAN AMERICAN > 90 mL/min (90-120)
--- NOTE | 2020-09-16 08:50 | NUR ---
PT SITTING UP IN BED. RESP EVEN AND UNLABORED. PT REPORTS PAIN 6/10 AT THIS TIME. PAIN MEDICATION ADMINISTERED PER MD ORDERS AT THSI TIME. PT ALSO REQUEST ATIVAN FOR ANXIETY AT THIS TIME. EDUCATED PT REGARDING ADMINISTRATION OF SEDATING MEDICATIONS. PT VOICES UNDERSTANDING. IV TO LEFT FOREARM WITH 1/2 NS @ 125ML/HR INFUSING VIA PUMP. SITE WITHOUT REDNESS OR EDEMA. SALINE LOC TO LEFT AC, SITE WITHOUT REDNESS OR EDEMA. PT DENIES FURTHERR NEEDS AT THIS TIME. CL WITHIN REACH. ENCOURAGED TO CALL WITH NEEDS. CONTINUE POC
[2020-09-16 08:51] VITALS: BP 116/65
[2020-09-16 11:00] VITALS: BP 120/70
[2020-09-16] MEDS ORDERED: PROTONIX40 MG PO (11:51)
[2020-09-16] MEDS ORDERED: DIGOXIN250 MCG PO (11:52)
[2020-09-16] MEDS ORDERED: ZOFRAN ODT4 MG/UDTAB PO (11:52)
--- NOTE | 2020-09-16 12:10 | NUR ---
SPOKE WITH PT REGARDING PENDING DISCHARGE. PT VOICES THAT HE DOES NOT FEEL THAT HE IS READY FOR DISCHARGE ASKING/INFORMING STAFF THAT HE WILL CALL MEDICARE AND AGAIN STATES THAT HE DOES NOT FEEL THOUGH HE IS READY FOR DISCHARGE. INFORMED DAPHNE CASTILLO APN AND CODY HONEYCUTT RN OR PT COMMENTS.
--- NOTE | 2020-09-16 14:58 | MORECARE ---
CASE MANAGEMENT DISCHARGE SUMMARY PATIENT: AUGIE NEGRO UNIT: [id number] ADM DATE: 09/13/20 AGE: 40 : 82 SEX: M ROOM/BED: D.2226 AUTHOR: INA,DOC PHYSICIAN: REFERRING PHYSICIAN: KIKE TIDWELL MD DATE OF SERVICE: 09/16/20 Case Management Discharge Planning Summary DCP REVIEW SUMMARY ANTICIPATED D/C DATE: EXPECTED LOS : CASE STATUS: DCP Initiated INITIAL REVIEW: 09/13/2020 INITIAL REVIEWER: Tara Dukes FINAL DISCHARGE DISPOSITION: : FINAL REVIEWER: FINAL REVIEW DATE: DCP Focus Questions & Answers DCP Screen QUESTION: ANSWER High Risk Factors: : Poor health literacy DCP Evaluation QUESTION: ANSWER Patient's ability to cope with chronic illness : d. No chronic illness Would patient like to participate in any Care Coordination programs (if applicable): : Not applicable Mental health screen: : No mental health history DCP Re-evaluation QUESTION: ANSWER Would patient like to participate in any Care Coordination programs (if applicable): : Not applicable PATIENT: AUGIE NEGRO ENCOUNTER: [id number] MEDICAL RECORD#: [id number] ADMISSION DATE: 09/13/2020 DISCHARGE DATE: ATTENDING MD: KIKE MARQUEZ : AGE: 40 MARITAL STATUS: S DC PLAN ID: [id number] FACILITY: [facility] PRINTED ON: 09/16/20 14:58 CT All edits/amendments must be made on the electronic document DICTATION DATE: 09/16/201457 NURSE AUDITOR: DICK 09/16/201457 RPT#: [id number] DC DATE: STATUS: ADM IN [facility] [address] [place] [address] END OF REPORT
--- NOTE | 2020-09-16 15:46 | NUR ---
PT CONTINUES TO VOICE C/O OF CHEST PAIN. TELEMETRY PLACED, SR 76. NITRO 0.4MG PLACED SUBLINGUAL AT THIS TIME. BP 128/77, HR 76, RESP 16.
--- NOTE | 2020-09-16 15:53 | NUR ---
BP REASSESSED AT THIS TIME. 108/58, HR 74, RESP 17. PT REPORTS IMPROVED PAIN TO LEFT UPPER CHEST.
--- NOTE | 2020-09-16 16:06 | MORECARE ---
CASE MANAGEMENT DISCHARGE SUMMARY PATIENT: AUGIE NEGRO UNIT: [id number] ADM DATE: 09/13/20 AGE: 40 : 82 SEX: M ROOM/BED: D.2226 AUTHOR: INA,DOC PHYSICIAN: REFERRING PHYSICIAN: KIKE TIDWELL MD DATE OF SERVICE: 09/16/20 Case Management Discharge Planning Summary COMMENTS ENTERED DATE: 09/16/20 15:50 CT COMMENT TYPE: Discharge Planning REVIEWER: Tara Dukes CM met with patient at bedside after obtaining verbal consent. CM discussed availability / needs of home health, REHAB and medical equipment. Patient is current with [facility]. Plan is to have gallbladder out tomorrow and then dc to home. IMM signed. CM to follow and assist as needed. DCP REVIEW SUMMARY ANTICIPATED D/C DATE: EXPECTED LOS : CASE STATUS: DCP Initiated INITIAL REVIEW: 09/13/2020 INITIAL REVIEWER: Tara Dukes FINAL DISCHARGE DISPOSITION: : FINAL REVIEWER: FINAL REVIEW DATE: DCP Focus Questions & Answers DCP Screen QUESTION: ANSWER High Risk Factors: : Poor health literacy DCP Evaluation QUESTION: ANSWER Patient's ability to cope with chronic illness : c. Inadequate (3+ ED visits in 6 mos., readmits within 30 days, 2+ hospital admissions in 1 yr.) Patient's current cognitive status: : *Oriented to person, place, situation, time and present Physical Status: : Independent with ADL's Functional screen assessment: : Can meet basic needs but may require referral for resources Living Arrangements: : Home with others Baseline cognitive status: : *Oriented to person, place, situation, time and present Facility / Agency name and contact information from Question 3 (if applicable): : current with [facility] Would patient like to participate in any Care Coordination programs (if applicable): : Not applicable Mental health screen: : No mental health history DCP Re-evaluation QUESTION: ANSWER Would patient like to participate in any Care Coordination programs (if applicable): : Not applicable PATIENT: AUGIE NEGRO ENCOUNTER: [id number] MEDICAL RECORD#: [id number] ADMISSION DATE: 09/13/2020 DISCHARGE DATE: ATTENDING MD: KIKE MARQUEZ : AGE: 40 MARITAL STATUS: S DC PLAN ID: [id number] FACILITY: [facility] PRINTED ON: 09/16/20 16:06 CT All edits/amendments must be made on the electronic document DICTATION DATE: 09/16/201605 RESIDENTIAL FINISH CARPENTER: DICK 09/16/201605 RPT#: [id number] DC DATE: STATUS: ADM IN [facility] [address] [place] [address] END OF REPORT
[2020-09-16 20:00] VITALS: BP 106/75
[2020-09-17] VITALS: BP 98/60
[2020-09-17 04:00] VITALS: BP 98/59
[2020-09-17 06:23] LABS: BASOPHILS 0.9 % (0-2); EOSINOPHILS 2.7 % (0-7); HEMATOCRIT 37.9 % (42.0-54.0); HEMOGLOBIN 13.2 g/dL (13.5-17.5); LYMPHOCYTES 34.3 % (15-50); MCH 29.8 pg (26.0-34.0); MCHC 34.8 g/dL (31.0-37.0); MCV 85.6 fL (80.0-100.0); MEAN PLATELET VOLUME 7.8 fL (7.4-10.4); MONOCYTES 14.8 % (2-11); NEUTROPHILS 47.3 % (40-80); PLATELET COUNT 311 10x3/uL (130-400); RBC 4.42 10x6/uL (4.20-6.10); RDW 14.2 % (11.5-14.5); WBC 5.9 10x3/uL (4.8-10.8)
[2020-09-17 06:51] LABS: ALBUMIN 3.6 g/dL (3.4-5.0); ALKALINE PHOSPHATASE 52 U/L (30-120); ALT (SGPT) 49 U/L (10-68); CALCIUM 8.9 mg/dL (8.5-10.1); CARBON DIOXIDE 27.4 mmol/L (21.0-32.0); CHLORIDE - SERUM 103 mmol/L (98-107); CREATININE - SERUM 0.8 mg/dL (0.6-1.3); GLUCOSE 85 mg/dL (74-106); MAGNESIUM - SERUM 2.1 mg/dL (1.8-2.4); PROTEIN - SERUM 6.4 g/dL (6.4-8.2); SODIUM 138 mmol/L (136-145); eGFR NON AFRICAN AMERICAN > 90 mL/min (90-120)
[2020-09-17 06:52] LABS: CALC OSMOLALITY 273 mosm/kg (275-300); UREA NITROGEN 11 mg/dL (7-18)
--- NOTE | 2020-09-17 07:39 | NUR ---
PATIENT GONE FOR PROCEDURE.
[2020-09-17 09:26] VITALS: BP 123/59
[2020-09-17 11:37] VITALS: BP 119/79
--- NOTE | 2020-09-17 11:38 | NUR ---
PATIENT'S VS REMAIN STABLE. DISCONNECTED HIMSELF FROM BP CUFF AND WALKING AROUND HALLWAY.
[2020-09-17 14:40] VITALS: BP 125/83
--- NOTE | 2020-09-17 16:21 | NUR ---
GASTROPARESIS EDUCATION PAPERWORK GIVEN TO PATIENT. 09/17/20 AT 1620.
[2020-09-17 21:43] VITALS: BP 122/69
--- NOTE | 2020-09-18 03:15 | NUR ---
I have reviewed this patient and I concur with the Shift Assessment completed by the Licensed Practical Nurse today this shift.
[2020-09-18 05:38] VITALS: BP 105/51
[2020-09-18 06:09] LABS: BASOPHILS 0.4 % (0-2); EOSINOPHILS 0.6 % (0-7); HEMATOCRIT 34.2 % (42.0-54.0); HEMOGLOBIN 12.3 g/dL (13.5-17.5); LYMPHOCYTES 16.1 % (15-50); MCH 30.2 pg (26.0-34.0); MCHC 36.1 g/dL (31.0-37.0); MEAN PLATELET VOLUME 8.1 fL (7.4-10.4); MONOCYTES 12.7 % (2-11); NEUTROPHILS 70.2 % (40-80); PLATELET COUNT 307 10x3/uL (130-400); RBC 4.09 10x6/uL (4.20-6.10); RDW 13.9 % (11.5-14.5)
[2020-09-18 06:32] LABS: MCV 83.5 fL (80.0-100.0); WBC 8.2 10x3/uL (4.8-10.8)
[2020-09-18 06:46] LABS: ALBUMIN 3.7 g/dL (3.4-5.0); ALKALINE PHOSPHATASE 55 U/L (30-120); BILIRUBIN - TOTAL 0.46 mg/dL (0.2-1.3); CALCIUM 8.9 mg/dL (8.5-10.1); CARBON DIOXIDE 26.5 mmol/L (21.0-32.0); CHLORIDE - SERUM 103 mmol/L (98-107); CREATININE - SERUM 0.8 mg/dL (0.6-1.3); GLUCOSE 101 mg/dL (74-106); POTASSIUM - SERUM 3.8 mmol/L (3.5-5.1); PROTEIN - SERUM 6.5 g/dL (6.4-8.2); SODIUM 137 mmol/L (136-145); eGFR NON AFRICAN AMERICAN > 90 mL/min (90-120)
[2020-09-18 07:10] LABS: ALT (SGPT) 87 U/L (10-68); CALC OSMOLALITY 271 mosm/kg (275-300); UREA NITROGEN 8 mg/dL (7-18)
--- NOTE | 2020-09-18 08:15 | NUR ---
PATIENT IN BED WITH IV INTACT. DRESSINGS TO ABDOMEN CLEAN AND DRY. NO COMPLAINTS OR SIGNS OF DISTRESS. CALL LIGHT WITHIN REACH.
[2020-09-18 10:28] VITALS: BP 94/54
--- NOTE | 2020-09-18 11:00 | NUR ---
PATIENT UP AMBULATING AT THIS TIME WITH NO PROBLEMS. CALL LIGHT WITHIN REACH.
[2020-09-18] MEDS ORDERED: HYDROCODON-ACE1 EAC7 PO (11:44)
[2020-09-18] MEDS ORDERED: LEVOFLOXACIN500 MG PO (11:45)
--- NOTE | 2020-09-18 12:24 | NUR ---
PATIENT RECIEVED DC INSTRUCTIONS AND PRESCRIPTIONS. VERBALIZED UNDERSTANDING. NO QUESTIONS AT THIS TIME. IV REMOVED WITH CATH TIP INTACT. WAITING FOR TRANSPORTATION FOR DC. CALL LIGHT WITHIN REACH.
--- NOTE | 2020-09-18 12:50 | NUR ---
ESCORTED PATIENT OUT OF HOSPITAL WITH PERSONAL BELONGINGS TO TAXI VIA WC AT THIS TIME.
--- NOTE | 2020-09-18 18:56 | MORECARE ---
CASE MANAGEMENT DISCHARGE SUMMARY PATIENT: AUGIE NEGRO UNIT: [id number] ADM DATE: 09/13/20 AGE: 40 : 82 SEX: M ROOM/BED: D.2226 AUTHOR: INA,DOC PHYSICIAN: REFERRING PHYSICIAN: KIKE TIDWELL MD DATE OF SERVICE: 09/18/20 Case Management Discharge Planning Summary COMMENTS ENTERED DATE: 09/18/20 18:55 CT COMMENT TYPE: Discharge Planning REVIEWER: Hannah Gupta CM spoke with patient to complete discharge plan and discuss needs. Patient states he lives at home with his girlfriend Jessica, . Patient states he is independent with all ADLs and does not use assistive devices. He is unable to find transportation after discharge and requests a taxi and voucher. IMM delivered, explained, signed by the patient's son, and placed in chart. Pt states he continues to have diarrhea but will not attempt to appeal his discharge because of this ongoing symptom. He states he feels that he is safe to discharge if he receives assistance with transportation. CM then contacted Taxi service to arrange transportation via voucher. CM will continue to follow and assist as needed. ENTERED DATE: 09/16/20 15:50 CT COMMENT TYPE: Discharge Planning REVIEWER: Tara Dukes CM met with patient at bedside after obtaining verbal consent. CM discussed availability / needs of home health, REHAB and medical equipment. Patient is current with [facility] home [facility]. Plan is to have gallbladder out tomorrow and then dc to home. IMM signed. CM to follow and assist as needed. DCP REVIEW SUMMARY ANTICIPATED D/C DATE: EXPECTED LOS : CASE STATUS: DCP Initiated INITIAL REVIEW: 09/13/2020 INITIAL REVIEWER: Tara Dukes FINAL DISCHARGE DISPOSITION: : FINAL REVIEWER: FINAL REVIEW DATE: DCP Focus Questions & Answers DCP Screen QUESTION: ANSWER High Risk Factors: : Poor health literacy DCP Evaluation QUESTION: ANSWER Patient's current cognitive status: : *Oriented to person, place, situation, time and present Patient's ability to cope with chronic illness : c. Inadequate (3+ ED visits in 6 mos., readmits within 30 days, 2+ hospital admissions in 1 yr.) Functional screen assessment: : Can meet basic needs but may require referral for resources Physical Status: : Independent with ADL's Living Arrangements: : Home with others Baseline cognitive status: : *Oriented to person, place, situation, time and present Facility / Agency name and contact information from Question 3 (if applicable): : current with [facility] Would patient like to participate in any Care Coordination programs (if applicable): : Not applicable Mental health screen: : No mental health history DCP Re-evaluation QUESTION: ANSWER Would patient like to participate in any Care Coordination programs (if applicable): : Not applicable PATIENT: AUGIE NEGRO ENCOUNTER: [id number] MEDICAL RECORD#: [id number] ADMISSION DATE: 09/13/2020 DISCHARGE DATE: 09/18/2020 ATTENDING MD: KIKE MARQUEZ : AGE: 40 MARITAL STATUS: S DC PLAN ID: [id number] FACILITY: [facility] PRINTED ON: 09/18/20 18:56 CT All edits/amendments must be made on the electronic document DICTATION DATE: 09/18/201855 RABIES INSPECTOR: DICK 09/18/201855 RPT#: [id number] DC DATE:09/18/20 STATUS: DIS IN [facility] [address] [place] [address] END OF REPORT
--- NOTE | 2020-09-18 19:06 | MORECARE ---
CASE MANAGEMENT DISCHARGE SUMMARY PATIENT: AUGIE NEGRO UNIT: [id number] ADM DATE: 09/13/20 AGE: 40 : 82 SEX: M ROOM/BED: D.2226 AUTHOR: INA,DOC PHYSICIAN: REFERRING PHYSICIAN: KIKE TIDWELL MD DATE OF SERVICE: 09/18/20 Case Management Discharge Planning Summary COMMENTS ENTERED DATE: 09/18/20 18:55 CT COMMENT TYPE: Discharge Planning REVIEWER: Hannah Gupta CM spoke with patient to complete discharge plan and discuss needs. Patient states he lives at home with his girlfriend Jessica, . Patient states he is independent with all ADLs and does not use assistive devices. He is unable to find transportation after discharge and requests a taxi and voucher. IMM delivered, explained, signed by the patient's son, and placed in chart. Pt states he continues to have diarrhea but will not attempt to appeal his discharge because of this ongoing symptom. He states he feels that he is safe to discharge if he receives assistance with transportation. CM then contacted Taxi service to arrange transportation via voucher. CM will continue to follow and assist as needed. ENTERED DATE: 09/16/20 15:50 CT COMMENT TYPE: Discharge Planning REVIEWER: Tara Dukes CM met with patient at bedside after obtaining verbal consent. CM discussed availability / needs of home health, REHAB and medical equipment. Patient is current with [facility] home health. Plan is to have gallbladder out tomorrow and then dc to home. IMM signed. CM to follow and assist as needed. DCP REVIEW SUMMARY ANTICIPATED D/C DATE: EXPECTED LOS : CASE STATUS: DCP Initiated INITIAL REVIEW: 09/13/2020 INITIAL REVIEWER: Tara Dukes FINAL DISCHARGE DISPOSITION: : FINAL REVIEWER: FINAL REVIEW DATE: DCP Focus Questions & Answers DCP Screen QUESTION: ANSWER High Risk Factors: : Poor health literacy DCP Evaluation QUESTION: ANSWER Patient's current cognitive status: : *Oriented to person, place, situation, time and present Patient's ability to cope with chronic illness : c. Inadequate (3+ ED visits in 6 mos., readmits within 30 days, 2+ hospital admissions in 1 yr.) Functional screen assessment: : Can meet basic needs but may require referral for resources Physical Status: : Independent with ADL's Living Arrangements: : Home with others Baseline cognitive status: : *Oriented to person, place, situation, time and present Facility / Agency name and contact information from Question 3 (if applicable): : current with [facility] Would patient like to participate in any Care Coordination programs (if applicable): : Not applicable Mental health screen: : No mental health history DCP Re-evaluation QUESTION: ANSWER Would patient like to participate in any Care Coordination programs (if applicable): : Not applicable PATIENT: AUGIE NEGRO ENCOUNTER: [id number] MEDICAL RECORD#: [id number] ADMISSION DATE: 09/13/2020 DISCHARGE DATE: 09/18/2020 ATTENDING MD: KIKE MARQUEZ : AGE: 40 MARITAL STATUS: S DC PLAN ID: [id number] FACILITY: [facility] PRINTED ON: 09/18/20 19:06 CT All edits/amendments must be made on the electronic document DICTATION DATE: 09/18/201905 REGRIND MILL OPERATOR: DICK 09/18/201905 RPT#: [id number] DC DATE:09/18/20 STATUS: DIS IN [facility] [address] [place] [address] END OF REPORT
== END 2020-09-18 13:54 | disposition home or self-care (01) | DRG 419 ==
LOC: D.ER 21:25 → OBSVTIME 23:46 → D.EDHOLD 23:46 → D.MS 09-13 00:03 → D.ER 09-13 00:03 → OBSVTIME 09-13 00:04 → D.EDHOLD 09-13 00:28 → D.MS 09-13 00:28
PROVIDERS: Family Medicine; Internal Medicine Gastroenterology; Student in an Organized Health Care Education/Training Program; Surgery; ADMIT Emergency Medicine; ATTEND Emergency Medicine
PROC: 0DB98ZX Excision of Duodenum, Via Natural or Artificial Opening Endoscopic, Diagnostic (ICD-10-PCS; 2020-09-15)
PROC: 0DB78ZX Excision of Stomach, Pylorus, Via Natural or Artificial Opening Endoscopic, Diagnostic (ICD-10-PCS; 2020-09-15)
PROC: 0DB28ZX Excision of Middle Esophagus, Via Natural or Artificial Opening Endoscopic, Diagnostic (ICD-10-PCS; 2020-09-15)
PROC: 0DB38ZX Excision of Lower Esophagus, Via Natural or Artificial Opening Endoscopic, Diagnostic (ICD-10-PCS; 2020-09-15)
PROC: 0FT44ZZ Resection of Gallbladder, Percutaneous Endoscopic Approach (ICD-10-PCS; principal; 2020-09-17 07:30)
DX: K86.1 Other chronic pancreatitis (principal); R07.9 Chest pain, unspecified; R00.2 Palpitations; D64.9 Anemia, unspecified; I10 Essential (primary) hypertension; K21.9 Gastro-esophageal reflux disease without esophagitis; G40.909 Epilepsy, unspecified, not intractable, without status epilepticus; F41.9 Anxiety disorder, unspecified; Z95.0 Presence of cardiac pacemaker; R19.7 Diarrhea, unspecified; K31.84 Gastroparesis; K22.70 Barrett's esophagus without dysplasia; K29.50 Unspecified chronic gastritis without bleeding

== ENCOUNTER 2020-09-28 15:29 | Emergency (ER) | payer MEDICARE ==
[~2020-09-28] VITALS: Ht 180.3 cm; Wt 60.5 kg
[~2020-09-28 15:29] MED LIST changes: +ACETAMINOPHEN500 M1 PO; +CIPRO500 MG PO; +DIGOXIN250 MCG PO; +HYDROCODON-ACE1 EAC7 PO; +MOTRIN600 MG PO
[2020-09-28 15:58] VITALS: Ht 180.3 cm; Wt 60.5 kg
[2020-09-28 16:27] LABS: BASOPHILS 0.8 % (0-2); EOSINOPHILS 0.7 % (0-7); HEMATOCRIT 41.3 % (42.0-54.0); HEMOGLOBIN 14.6 g/dL (13.5-17.5); LYMPHOCYTES 18.3 % (15-50); MCH 29.9 pg (26.0-34.0); MCHC 35.4 g/dL (31.0-37.0); MCV 84.4 fL (80.0-100.0); MEAN PLATELET VOLUME 7.9 fL (7.4-10.4); MONOCYTES 11.4 % (2-11); NEUTROPHILS 68.8 % (40-80); PLATELET COUNT 304 10x3/uL (130-400); RDW 13.5 % (11.5-14.5); WBC 7.9 10x3/uL (4.8-10.8)
[2020-09-28 16:38] LABS: CALC OSMOLALITY 279 mosm/kg (275-300); CALCIUM 8.8 mg/dL (8.5-10.1); CARBON DIOXIDE 28.2 mmol/L (21.0-32.0); CHLORIDE - SERUM 103 mmol/L (98-107); CREATININE - SERUM 0.7 mg/dL (0.6-1.3); GLUCOSE 86 mg/dL (74-106); POTASSIUM - SERUM 3.4 mmol/L (3.5-5.1); SODIUM 141 mmol/L (136-145); UREA NITROGEN 13 mg/dL (7-18); eGFR NON AFRICAN AMERICAN > 90 mL/min (90-120)
[2020-09-28 16:44] LABS: ALBUMIN 4.1 g/dL (3.4-5.0); ALKALINE PHOSPHATASE 134 U/L (30-120); ALT (SGPT) 249 U/L (10-68); BILIRUBIN - TOTAL 0.58 mg/dL (0.2-1.3); LIPASE 71 U/L (73-393); PROTEIN - SERUM 7.3 g/dL (6.4-8.2)
[2020-09-28 17:30] LABS: BILIRUBIN NEGATIVE (NEGATIVE); KETONE NEGATIVE (NEGATIVE); NITRITE NEGATIVE (NEGATIVE); UROBILINOGEN NORMAL mg/dL (< 2)
[2020-09-28] MEDS ORDERED: HYDROCODON-ACE1 EA10 PO (19:14)
[2020-09-28 19:47] VITALS: BP 137/81
== END 2020-09-28 19:49 | disposition home or self-care (01) ==
LOC: D.ER 15:29
PROVIDERS: Family Medicine
DX: K66.0 Peritoneal adhesions (postprocedural) (postinfection) (principal); R10.9 Unspecified abdominal pain

== ENCOUNTER 2020-09-29 13:52 | Emergency (ER) | payer MEDICARE ==
[~2020-09-29] VITALS: Ht 180.3 cm; Wt 60.5 kg
[2020-09-29 13:54] VITALS: Ht 180.3 cm; Wt 60.5 kg
[2020-09-29 14:29] LABS: BASOPHILS 0.6 % (0-2); EOSINOPHILS 1.5 % (0-7); HEMOGLOBIN 13.6 g/dL (13.5-17.5); LYMPHOCYTES 24.6 % (15-50); MCH 29.9 pg (26.0-34.0); MCHC 34.7 g/dL (31.0-37.0); MEAN PLATELET VOLUME 7.7 fL (7.4-10.4); NEUTROPHILS 62.3 % (40-80); PLATELET COUNT 298 10x3/uL (130-400); RBC 4.54 10x6/uL (4.20-6.10); RDW 13.5 % (11.5-14.5); WBC 6.1 10x3/uL (4.8-10.8)
[2020-09-29 14:33] LABS: CALC OSMOLALITY 281 mosm/kg (275-300); CALCIUM 9.4 mg/dL (8.5-10.1); CARBON DIOXIDE 30.7 mmol/L (21.0-32.0); CHLORIDE - SERUM 101 mmol/L (98-107); CREATININE - SERUM 0.7 mg/dL (0.6-1.3); GLUCOSE 129 mg/dL (74-106); SODIUM 141 mmol/L (136-145); UREA NITROGEN 10 mg/dL (7-18); eGFR NON AFRICAN AMERICAN > 90 mL/min (90-120)
[2020-09-29 14:35] LABS: APTT 27.2 SECONDS (22.8-39.4); INR 1.22 (0.85-1.17); PROTIME 14.2 SECONDS (11.6-15.0)
[2020-09-29 14:48] VITALS: BP 120/72
[2020-09-29 14:50] LABS: ALBUMIN 4.1 g/dL (3.4-5.0); ALKALINE PHOSPHATASE 149 U/L (30-120); ALT (SGPT) 238 U/L (10-68); CKMB 0.2 U/L (0.0-3.6); CREATINE KINASE 35 UL (21-232); MAGNESIUM - SERUM 2.2 mg/dL (1.8-2.4); PROTEIN - SERUM 7.3 g/dL (6.4-8.2); TROPONIN-I < 0.017 ng/mL (0.000-0.060)
== END 2020-09-29 18:19 | disposition home or self-care (01) ==
LOC: D.ER 13:52
PROVIDERS: Family Medicine
DX: R07.89 Other chest pain (principal)

== ENCOUNTER 2020-10-03 12:55 | Emergency (ER) | payer MEDICARE ==
[~2020-10-03] VITALS: Ht 180.3 cm; Wt 60.5 kg
[2020-10-03 13:05] VITALS: Ht 180.3 cm; Wt 60.5 kg
[2020-10-03 13:36] LABS: BASOPHILS 0.5 % (0-2); EOSINOPHILS 2.5 % (0-7); HEMATOCRIT 41.7 % (42.0-54.0); IMMATURE GRANULOCYTES 0.2 % (0-5); LYMPHOCYTE ABS# 1.52 10x3/uL (1.32-3.57); LYMPHOCYTES 23.6 % (15-50); MCV 83.4 fL (80.0-100.0); MEAN PLATELET VOLUME 9.9 fL (7.4-10.4); MONOCYTES 11.6 % (2-11); NEUTROPHIL ABS# 3.98 10x3/uL (1.78-5.38); NEUTROPHILS 61.6 % (40-80); PLATELET COUNT 316 10x3/uL (130-400); RDW 13.1 % (11.5-14.5); WBC 6.5 10x3/uL (4.8-10.8)
[2020-10-03 13:49] LABS: ALKALINE PHOSPHATASE 164 U/L (30-120); ALT (SGPT) 166 U/L (10-68); AMYLASE - SERUM 33 U/L (25-115); CALC OSMOLALITY 273 mosm/kg (275-300); CALCIUM 9.8 mg/dL (8.5-10.1); CHLORIDE - SERUM 100 mmol/L (98-107); CREATININE - SERUM 0.8 mg/dL (0.6-1.3); GLUCOSE 98 mg/dL (74-106); LIPASE 86 U/L (73-393); PROTEIN - SERUM 7.9 g/dL (6.4-8.2); SODIUM 138 mmol/L (136-145); TROPONIN-I < 0.017 ng/mL (0.000-0.060); UREA NITROGEN 8 mg/dL (7-18); eGFR NON AFRICAN AMERICAN > 90 mL/min (90-120)
[2020-10-03 13:57] LABS: ALBUMIN 4.6 g/dL (3.4-5.0); CARBON DIOXIDE 29.1 mmol/L (21.0-32.0)
[2020-10-03 14:05] LABS: BILIRUBIN NEGATIVE (NEGATIVE); KETONE NEGATIVE mg/dL (< 1+); NITRITE NEGATIVE (NEGATIVE); UROBILINOGEN NORMAL mg/dL (< 2); WHITE CELLS - URINE <1 HPF (0-1)
[2020-10-03] MEDS ORDERED: LEVSIN/ANASP0.125 MG PO (14:48)
[2020-10-03] MEDS ORDERED: PROTONIX40 MG PO (14:48)
[2020-10-03] MEDS ORDERED: CARAFATE1 G PO (14:48)
[2020-10-03 14:50] VITALS: BP 129/70
[2020-10-03] MEDS ORDERED: REGLAN10 MG PO (14:52)
== END 2020-10-03 14:59 | disposition other institution (70) ==
LOC: D.ER 12:55
PROVIDERS: Family Medicine
DX: R10.9 Unspecified abdominal pain (principal); Z95.0 Presence of cardiac pacemaker

== ENCOUNTER 2020-10-04 23:08 | Emergency (ER) | payer MEDICARE ==
[~2020-10-04] VITALS: Ht 180.3 cm; Wt 60.5 kg
[~2020-10-04 23:08] MED LIST changes: +REGLAN10 MG PO
[2020-10-04 23:10] VITALS: Ht 180.3 cm; Wt 60.5 kg
[2020-10-05 00:40] LABS: BASOPHILS 0.9 % (0-2); EOSINOPHILS 3.3 % (0-7); HEMOGLOBIN 13.3 g/dL (13.5-17.5); LYMPHOCYTES 29.3 % (15-50); MCH 29.8 pg (26.0-34.0); MCHC 35.1 g/dL (31.0-37.0); MCV 84.9 fL (80.0-100.0); MEAN PLATELET VOLUME 7.6 fL (7.4-10.4); MONOCYTES 13.3 % (2-11); NEUTROPHILS 53.2 % (40-80); PLATELET COUNT 319 10x3/uL (130-400); RBC 4.48 10x6/uL (4.20-6.10); RDW 13.8 % (11.5-14.5); WBC 7.1 10x3/uL (4.8-10.8)
[2020-10-05 00:49] LABS: CALC OSMOLALITY 274 mosm/kg (275-300); CALCIUM 9.4 mg/dL (8.5-10.1); CARBON DIOXIDE 29.1 mmol/L (21.0-32.0); CHLORIDE - SERUM 102 mmol/L (98-107); CREATININE - SERUM 0.8 mg/dL (0.6-1.3); GLUCOSE 82 mg/dL (74-106); POTASSIUM - SERUM 3.6 mmol/L (3.5-5.1); SODIUM 140 mmol/L (136-145); eGFR NON AFRICAN AMERICAN > 90 mL/min (90-120)
[2020-10-05 00:52] LABS: UREA NITROGEN 5 mg/dL (7-18)
[2020-10-05 00:58] LABS: ALBUMIN 4.1 g/dL (3.4-5.0); ALKALINE PHOSPHATASE 154 U/L (30-120); BILIRUBIN - TOTAL 0.55 mg/dL (0.2-1.3); PROTEIN - SERUM 7.2 g/dL (6.4-8.2); TROPONIN-I < 0.017 ng/mL (0.000-0.060)
[2020-10-05 01:02] LABS: ALT (SGPT) 123 U/L (10-68)
[2020-10-05 01:45] VITALS: BP 136/77
== END 2020-10-05 01:45 | disposition home or self-care (01) ==
LOC: D.ER 23:08
PROVIDERS: Family Medicine
DX: R07.9 Chest pain, unspecified (principal); Z95.0 Presence of cardiac pacemaker

== ENCOUNTER 2020-10-17 17:33 | Emergency (ER) | payer MEDICARE ==
[~2020-10-17] VITALS: Ht 180.3 cm; Wt 63.6 kg
[2020-10-17 17:45] VITALS: BP 148/81; Ht 180.3 cm; Wt 63.6 kg
[2020-10-17 18:07] LABS: BILIRUBIN NEGATIVE (NEGATIVE); KETONE NEGATIVE mg/dL (< 1+); NITRITE NEGATIVE (NEGATIVE); PH 6.5 (5.0-8.0); UROBILINOGEN NORMAL mg/dL (< 2); WHITE CELLS - URINE <1 HPF (0-1)
[2020-10-17 18:24] LABS: UDS - AMPHET NEGATIVE QUAL (NEGATIVE); UDS - BARB NEGATIVE QUAL (NEGATIVE); UDS - BENZO NEGATIVE QUAL (NEGATIVE); UDS - COCAINE NEGATIVE QUAL (NEGATIVE); UDS - OPIATE NEGATIVE QUAL (NEGATIVE); UDS - PCP NEGATIVE QUAL (NEGATIVE); UDS - THC NEGATIVE QUAL (NEGATIVE)
[2020-10-17 18:38] LABS: BASOPHILS 0.7 % (0-2); EOSINOPHILS 0.8 % (0-7); HEMATOCRIT 43.3 % (42.0-54.0); MCH 29.6 pg (26.0-34.0); MCHC 34.7 g/dL (31.0-37.0); MCV 85.3 fL (80.0-100.0); MEAN PLATELET VOLUME 7.9 fL (7.4-10.4); NEUTROPHILS 73.5 % (40-80); PLATELET COUNT 314 10x3/uL (130-400); RBC 5.08 10x6/uL (4.20-6.10); RDW 13.6 % (11.5-14.5); WBC 10.8 10x3/uL (4.8-10.8)
[2020-10-17 18:46] LABS: CALC OSMOLALITY 279 mosm/kg (275-300); CALCIUM 9.3 mg/dL (8.5-10.1); CARBON DIOXIDE 28.4 mmol/L (21.0-32.0); CHLORIDE - SERUM 101 mmol/L (98-107); CREATININE - SERUM 0.6 mg/dL (0.6-1.3); GLUCOSE 95 mg/dL (74-106); POTASSIUM - SERUM 3.8 mmol/L (3.5-5.1); SODIUM 140 mmol/L (136-145); UREA NITROGEN 14 mg/dL (7-18); eGFR NON AFRICAN AMERICAN > 90 mL/min (90-120)
[2020-10-17 18:51] LABS: ALBUMIN 4.1 g/dL (3.4-5.0); ALKALINE PHOSPHATASE 185 U/L (30-120); ALT (SGPT) 229 U/L (10-68); BILIRUBIN - TOTAL 0.45 mg/dL (0.2-1.3); MAGNESIUM - SERUM 2.2 mg/dL (1.8-2.4); PROTEIN - SERUM 7.9 g/dL (6.4-8.2)
[2020-10-17 19:37] LABS: SARS-CoV-2 ANTIGEN NEGATIVE- SARS-COV-2 (NEGATIVE)
--- NOTE | 2020-10-17 19:41 | NUR ---
DR. MOREIRA NOTIFIED AND SITTER ORDERED. SITTER AT BEDSIDE. NOTIFIED CHARGE NURSE AND ATTENDING IN REGARDS TO ASSESSMENT FINDINGS. RESOURCES GIVEN TO PT. AND SAFETY PLAN INITIATED.
== END 2020-10-18 22:10 ==
LOC: D.ER 17:33
PROVIDERS: Family Medicine
DX: R45.851 Suicidal ideations (principal); G89.29 Other chronic pain; F32.9 Major depressive disorder, single episode, unspecified; Z95.0 Presence of cardiac pacemaker